=== PATIENT | female | born 1960 | race Caucasian/White ===

== ENCOUNTER 2023-05-23 23:46 | Observation (INO) | payer BC ==
--- OUTSIDE RECORDS SUMMARY | 2023-05-23 23:51 | XMS REPORT | Continuity of Care Document ---
:1960 Author Organization [facility] t Address [address] [place] [address] [address] [place] [address] Care Team Providers Name Role Phone Seth Severino MD Primary Care Physician Gaby Villa Attending Clinician Unavailable [email or web address]_S Attending Clinician Unavailable FRANCIS COUCH Attending Clinician Unavailable LION ESCOBEDO Attending Clinician Unavailable DEBBI VENEGAS Attending Clinician Unavaila ble [email or web address]_Kadiyala_S Admitting Clinician Unavailable LION ESCOBEDO Admitting Clinician Unavailable DEBBI VENEGAS Admitting Clinician Unavaila salvador Payers Payer Name Policy Type Policy Number Effective Date Expiration Date S ource [place] [id number] 2018 00:[place]:00 [place] EPO [id number] 2018 00:00:00 CHOICE Problems Condition Condition Condition Status Onset Resolution Last Treating Co mments Source Name Details Category Date Date Treatment Clinician Date Right Right Disease Active Last [facility] quadrant quadrant 00:00: t & Plan: Med ical abdominal abdominal 00 Formattin C enter pain pain g of this note might be different from the original. Right upper quadrant abdominal pain, nonspecif ic, random correlati on after eating food. Noted to have tendernes s to superfici al palpation . Given the nature of the pain and examinati on findings she could have some muscular component to the right upper quadrant abdominal pain. Certainly the nature of pain described does not character ize for underlyin g fatty liver. She would warrant further investiga tion for right upper quadrant abdominal pain with her GI physician because of associati on with food. Thyroid Thyroid Disease Active [facility] disorder disorder 4-20 Assessirene mariano 00:00: t & Plan: Medical [address] [place] [address] g of this note might be different from the original. Complaine d of nonspecif ic fatigue, constipat ion and palpitati on. Will check TSH to assess for thyroid abnormali ties. Fatty Fatty Disease Active 2016-08 [facility] liver liver 08-14 Assessirene Carranza 00:00: t & Plan: Medical [address] [place] [address] g of this note might be different from the original. Noted to have hepatic steatosis on MRI from 2016. FibroScan in 2017 consisten t with steatosis but no evidence of fibrosis. Comprehen sive work-up for other etiologie s in 2017 was negative. She has multiple risk factors including obesity, type 2 diabetes, hypertens ion and hyperlipi demia. Most recent ultrasoun d from 10/2021 showed mild fatty infiltrat ion of the liver. Control of the risk factors will be essential to improve the fatty liver. Counseled patient to adopt healthy lifestyle changes including low carbohydr ate diet, regular exercise and weight loss. Provided patient with education on fatty liver disease and fatty liver diseases diet. Metabolic Metabolic Disease Active 2016-08 [facility] syndrome syndrome 08-14 Assessirene mariano 00:00: t & Plan: Medical [address] [place] [address] g of this note might be different from the original. Risk factors for metabolic syndrome that include type 2 diabetes, hyperlipi demia, hypertens ion and obesity. Encourage d patient to lose weight. Also educated her to adhere to medical therapy for type 2 diabetes, hypertens ion and hyperlipi demia for strict control. Other Other Disease Active 2016-08 [facility] hyperlipid hyperlipid - Assessirene Carranza emia emia 00:00: t & Plan: Medical [address] [place] [address] g of this note might be different from the original. Treatment with atorvasta tin has been recommend ed by her treating physician s. Today we discussed the small risk of liver enzyme elevation s but a larger benefit from the treatment of her hyperlipi demia. It is recommend ed she begin the treatment trial with atorvasta tin with close monitorin g of the liver enzymes over the next 3 months with monthly labs locally. Exercise must begin regularly . Encounter Encounter Disease Active 2016-[address] [facility] for for 08-14 Assessirene Carranza screening screening 00:00: t & Plan: M edical for other for other 00 Formattin C enter viral viral g of this diseases diseases note might be different from the original. CDC recommend s that all patients with chronic liver disease, regardles s of etiology, should be immunized to prevent hepatitis A and hepatitis B if they are not already immune. This should be done in addition to other age-appro priate vaccines. She is immune to hepatitis A. We will check immunity against hepatitis B- vaccine recommend ations will follow. Abnormal Abnormal Disease Active 2016-08 [facility] liver 08-14 Deyanira Carranza diagnostic diagnostic 00:00: t & Plan: Medical imaging imaging 00 [facility] g of this note might be different from the original. Due to an abnormal appearanc e to the liver on high level MRI imaging, a comprehen sive work up for other etiologie s will be done today. The abnormal appearanc e is suspected due to hepatic steatosis only. No evidence of advanced fibrosis seen on imaging.A ddendum: the comprehen sive work up for other etiologie s was completel y negative. Allergies, Adverse Reactions, Alerts Allergy Allergy Status Severity Reaction(s) Onset Inactive Treating Comm ents Source Name Type Date Date Clinician CLINDAMY Allergy Active Low Rash 2020-[address] [facility] [address] [facility]DRA 2-26 [facility] Center Clindamy Propensi Active Rash 2019-[address] alondra ty to 2-26 [facility] adverse 00:00: Medical reaction 00 Center s LATEX Allergy Active High Hives [facility] 7[facility]30 [facility] 00:[facility] Medical 00 Center PENICILL Allergy Active High Hives [facility] INS 7-30 [facility] 00:00: Medical 00 Center HYDROCOD Allergy Active High Hives [facility] ONE-ACET 7-30 [facility] AMINOPHE 00:00: Medical N 00 Center Latex Drug Active Hives [facility] Allergy 7-30 [facility] 00:00: Medical 00 Center Penicill Drug Active Hives, [facility] Allergy Swelling 7-30 [facility] 00:[facility]: Medical 00 Center Hydrocod Drug Active Hives, [facility] one-Acet Allergy Shortness Of 7-30 L ukes aminophe Breath 00:00: Medical n 00 Center CODEINE Allergy Active High Anaphylaxis [facility] PHOSPHAT 2-27 [facility] E 00:00: Medical 00 Center Codeine Propensi Active Anaphylaxis [facility] Phosphat ty to 2-27 [facility] e adverse 00:00: Medical reaction 00 Center s Family History Family Member Diagnosis Comments Start Date Stop Date Source Natural father COPD [facility] Natural father Heart disease [facility] Natural father High blood pressure C [facility] Natural father Hyperlipidemia [facility] Maternal grandmother Cancer [facility] Maternal grandmother Diabetes [facility] Natural mother Anxiety disorder [facility] Natural mother Depression [facility] Natural mother High blood pressure C [facility] Natural mother Hyperlipidemia [facility] Paternal grandfather Heart disease C [facility] Social History Social Habit Start Date Stop Date Quantity Comments Source History SDOH [facility] Alcohol Std Drinks [facility] History SDOH [facility] Alcohol Binge Medical [facility] [facility] Alcohol intake 2021-11-28 2021-11-28 [facility]00 [facility] alcohol [facility] ([facility]) Alcohol Comment 2019-10-06 2019-10-[address] [facility] 00:00:00 00:00:00 Medical Center Cigarettes smoked 2019-10-06 2019-10-[address] [facility] current (pack per 00:00:00 00:00:00 Medical Center day) - Reported Cigarette 2019-10-06 2019-10-[address] [facility] pack-years 00:00:00 00:00:00 Medical Center Tobacco use and 2019-10-06 2019-10-06 Sm[address] [facility] exposure 00:00:00 00:00:00 non-user Medical Center History SDOH 2019-10-06 2019-10-[address] [facility] Alcohol Frequency 00:00:00 00:00:00 Medical Center Tobacco Comment 2019-10-06 2019-10-06 quit in the [address] [facility] 00:00:00 00:00:00 Medical Center History of tobacco 2008-03-[address] [facility] use 00[facility]00[facility]00 [facility] Sex Assigned At [address] 00:00:00 00:00:00 [facility] Smoking Status Start Date Stop Date Source Ex-smoker 2019-10-06 00:00:00 2019-10-06 00:00:[address] [facility] Medications Ordered Filled Start Stop Current Ordering Indication Dosage Frequency Signature Comments Components Source Medication Medication Date Date Medication? Clinician (SIG) Name Name docusate Yes 100mg Take [address] [facility] sodium 4-20 mg by [facility] (COLACE) 09:54: mouth 2 Medica l 100 MG 17 (two) Center capsule times daily as needed . cholecalcif Yes [id number] Q7D Take [facility] izabel, 4-20 50,000 [facility] vitamin D3, 09:54: Units by Or dical 50,000 unit 17 mouth once Ce nter Tab a week. lisinopril Yes 10mg QD Take [address] (PRINIVIL,Z 4-20 by mouth Luke s ESTRIL) 10 09:54: every Medica l MG tablet 17 morning. Center magnesium Yes 400mg QD Take [address] oxide 4-20 mg by [facility] (MAG-OX) 09:54: mouth Medical 400 mg 17 daily. Neotsu (241.3 mg magnesium) tablet ZINC Yes Take by [facility] ACETATE 4-20 mouth. [facility] ORAL 09:54: Medical 17 Center calcium Yes Take by [facility] carbonate 4-20 mouth. [facility] (CALTRATE 09:54: Medical 600 ORAL) 17 Center rosuvastati Yes 5mg QD Take [address] n (CRESTOR) 4-20 by mouth Luke s 5 MG tablet 09:50: daily. Medi traci 34 Center ergocalcife Yes TAKE [address] [facility] rol 4-05 CAPSULE [facility] (ERGOCALCIF 00:00: EVERY WEEK Medical IZABEL) 1,250 00 BY ORAL Cente r mcg (50,000 ROUTE FOR unit) 90 DAYS. capsule Vital Signs Vital Name Observation Time Observation Value Comments Source HEIGHT 2021-11-28 09:49:00 160 cm WEIGHT 2021-11-28 09:49:00 80.559 kg HEIGHT 2021-11-28 09:49:00 160 cm WEIGHT 2021-11-28 09:49:00 80.559 kg Procedures This patient has no known procedures. Plan of Care Planned Activity Planned Date Details Comments Source Future Scheduled 2029-10-07 Screening for malignant [facility] Test 00:00:00 neoplasm of colon Medical Ce nter (procedure) [code = 602964456] Future Scheduled 2029-10-07 Screening for malignant [facility] Test 00:00:00 neoplasm of colon Medical Ce nter (procedure) [code = 243407837] Future Scheduled 2023-04-11 Influenza Vaccine (#1) [facility] Test 00:00:00 [code = Influenza Vaccine Or dical Center (#1)] Future Scheduled 2022-11-[address] [facility] Test 00:00:00 Counseling and Screening [facility] (12+) [code = Tobacco Cessation Counseling and Screening (12+)] Future Scheduled 2022-08-[address] [facility] Test 00:00:00 (12+) [code = DEPRESSION Med [facility] Center SCREENING (12+)] Future Scheduled 2011-10-12 SHINGLES VACCINES ([address] [facility] Test 00:00:00 2) [code = SHINGLES Medical Center VACCINES (1 of 2)] Future Scheduled 2006 Lipid panel (procedure) [facility] Test 00:00:00 [code = 42637199] Medical Ce nter Future Scheduled 1982 Screening for malignant [facility] Test 00:00:00 neoplasm of cervix Medical C enter (procedure) [code = 978652295] Future Scheduled 1980 DTAP/TDAP/TD VACCINES ([address] [facility] Test 00:00:00 - Tdap) [code = Medical Cent er DTAP/TDAP/TD VACCINES (1 - Tdap)] Future Scheduled [address] [facility] Test 00:00:00 virus screening Medical Cent er (procedure) [code = 541697692] Future Scheduled 1962-04[birth year]13 COVID-19 VACCINE (#1) [facility] Test 00[facility]00:00 [code = COVID-19 VACCINE Med ical Center (#1)] Future Scheduled 1961 Screening for malignant [facility] Test 00:00:00 neoplasm of breast Medical C enter (procedure) [code = 951214302] Future Scheduled 1960 CT Colonography (combo) [facility] Test 00:00:00 [code = CT Colonography [facility] (combo)] Future Scheduled 1961 Screening for malignant [facility] Test 00:00:00 neoplasm of colon Medical Ce nter (procedure) [code = 522149577] Future Scheduled 1961 Screening for malignant [facility] Test 00:00:00 neoplasm of colon Medical Ce nter (procedure) [code = 282620844] Future Scheduled 1960 Sigmoidoscopy [code = [facility] Test 00:00:00 Sigmoidoscopy] Medical Cente r Encounters Start End Encounter Admission Attending Care Care Encounter Source Date/Time Date/Time Type Type Clinicians Facility Department ID 2023-04-17 Outpatient [place], [facility] [id number] Common 08:51:02 [place] [id number] [facility] 2023-03-24 Outpatient Villa, [facility] [id number] Common 13:49:02 [place] [id number] [facility] 2023-05-12 2023-05-12 Outpatient GC_GCBZW_Ka PRIV PRIV [id number] [facility] 00:00:00 00:00:00 diyala_S [id number] Medic al 2021-11-28 2021-11-28 Outpatient EL KHOA, [facility] [id number] [facility] 09:40:22 09:40:22 RISE 2019-10-06 2019-10-06 Outpatient [facility] [id number] [facility] 13:01:26 23:59:00 [id number] Results Test Description Test Time Test Comments Results Result Comments Source HEPATITIS B SURFACE ANTIBODY 2021-11-28 14:17:37 Test Item Value Reference Range Interpretation Comme nts HEPATITIS B SURFACE ANTIBODY (BEAKER) (test code = 647) < mIU/mL <8.0 Chamber Magistrate ID - [id number] 14:00:54 Test Item Value Reference Range Interpretation Comments THYROID STIMULATING HORMONE 0.755 uIU/mL 0.350-4.940 (BEAKER) (test code = 772) Chamber Magistrate ID - BSHEPATIC FUNCTION [id number] 13:36:26 Test Item Value Reference Range Interpretation Comments TOTAL PROTEIN (BEAKER) (test code = 7.6 gm/dL 6.0-8.3 770) ALBUMIN (BEAKER) (test code = 1145) 4.6 g/dL 3.5-5.0 BILIRUBIN TOTAL (BEAKER) (test code 0.7 mg/dL 0.2-1.2 = 377) BILIRUBIN DIRECT (BEAKER) (test 0.2 mg/dL 0.1-0.5 code = 706) ALKALINE PHOSPHATASE (BEAKER) (test 97 U/L 40-150 code = 346) AST (SGOT) (BEAKER) (test code = 19 U/L 5-34 353) ALT (SGPT) (BEAKER) (test code = 21 U/L 6-55 347) Chamber Magistrate ID - BSTISSUE [id number] 11:42:00Surgical Pathology Report Case: [id number] Authorizing Provider: Lion Escobedo, Collected: 10/07/2019 1030 MD Ordering Location: [facility] Received: 10/07/2019 1543 SERVICES Pathologist: Clara Winkler MD Specimens: A) - Biopsy, Gastric, Random Gastric Bx B) - Distal Esophagus, Distal Esophagus Bx C) - Proximal Esophagus, Proximal Esophagus Bx A. GASTRIC, RANDOM BIOPSY: - GASTRIC BODY TYPE MUCOSA WITH NO SIGNIFICANT HISTOPATHOLOGICAL CHANGE - GASTRIC ANTRUM TYPE MUCOSA WITH MONA CTIVE GASTROPATHY - WARTHIN STARRY STAIN NEGATIVE FOR H. PYLORI-LIKE ORGANISMS B. DISTAL ESOPHAGUS, BIOPSY: - FRAGMENTS OF ESOPHAGEAL SQUAMOUS MUCOSA WITH NO SIGNIFICANT HISTOPATHOLOGICAL CHANGEC. PROXIMAL ESOPHAGUS, BIOPSY: - ESOPHAGEAL SQUAMOUS MUCOSA WITH MILD BASAL CELL HYPERPLASIA AND REACTIVE CHANGES Signing Pathologist Direct Phone Line: [phone] signed by Clara Winkler MD on 10/08/2019 at 11:42 AMParts B and C. No significant increase in intraepithelial eosinophils are noted.Endoscopic report reviewed./[id number] and postoperative diagnosis: Change inbowel habits, black stool, bloating. Procedure-colonoscopy and upper endoscopy biopsy This case has three parts. A. Biopsy gastric, description random gastric biopsy. B. Distal esophagus, description distal esophagus biopsy. C. Proximal esophagus, description proximal esophagus biopsy. A. Specimen is received in formalin labeled with the patient's name, accession number and "biopsy, gastric" and consists of three cobian-pink mucosa-covered pieces of tissue from 0.3 x 0.1 x 0.1, 0.2 x 0.2 x 0.2 cm and 0.1 x 0.1 0.1 cm in aggregate. Specimen submitted entirely following infiltration in cassette A1.B. Specimen is received in formalin labeled with the patient's name, accession number and "distal esophagus " and consists of multiple cobian-pink mucosa-covered pieces of tissue from 0.3 x 0.1 x 0.1 to 0.1 x 0.1 x 0.1 cm in aggregate. Specimen is submitted entirely following infiltration in cassette B1. C. Specimen is received in formalin labeled with the patient's name, accession number and "proximal esophagus" and consists of multiple cobian-pink mucosa-covered pieces of tissue from 0.3 x 0.1 x 0.1 to 0.1 x 0.1 x 0.1 cm in aggregate. Specimen is submitted entirely following infiltration in cassette C1. HS/bcPerformed The interpretation of this case included the use of immunohistochemistry or special stains.Control Slides Examined: In-house known positive controls were evaluated along with the test tissue.These control slides run alongside of the patients sample show appropriate staining. Internal positive and negative controls when available are evaluated Immunohistochemistry technical testing was performed at [facility], Pathology Laboratory where it was developed and its performance characteristics were determined. It has not been cleared or approved by the U.S. Food and Drug Administration. The FDA has determined that such clearance or approval is not necessary. The test is used for clinical purposes. It should not be regarded as investigational or for research. This laboratory is certified under the Clinical Laboratory Improvement Amendments of 1988 (CLIA-88) as qualifiedto perform high complexity clinical laboratory testing.POCT-GLUCOSE [id number] 09:37:00 Test Item Value Reference Range Interpretation Comments POC-GLUCOSE METER 89 mg/dL 70-110 : TESTED A T [employer] ([employer]) (test code = [facility] 1538[facility] 7703 0: Chamber Magistrate/Techni cindy ID = [id number] for NATHANIEL BURDEN ANTI-NUCLEAR ANTIBODY (RAFIQ)2017-06-05 06:08:00 Test Item Value Reference Range Interpretation Comments ANTI-NUCLEAR ANTIBODY (RAFIQ) (BEAKER) Negative Negative (test code = 418) HEPATITIS C [id number] 19:14:00 Test Item Value Reference Range Interpretation Comments HEPATITIS C ANTIBODY (BEAKER) Nonreactive Nonreactive (test code = 367) [id number] 16:56:00 Test Item Value Reference Range Interpretation Comments FERRITIN (BEAKER) (test code = 361) 64 ng/mL 5-275 IRON, TIBC, % SAT. (WITHOUT FERRITIN)2017-06-04 16:36:00 Test Item Value Reference Range Interpretation Comments IRON (BEAKER) (test code = 547) 88 ug/dL 40-160 TOTAL IRON BINDING CAPACITY 369 ug/dL 250-450 (BEAKER) (test code = 769) IRON % SATURATION (2) (BEAKER) 24 % 20-55 (test code = 2590) CBC W/PLT COUNT & AUTO [id number] 14:56:00 Test Item Value Reference Range Interpretation Comments WHITE BLOOD CELL COUNT (BEAKER) 5.1 K/ L 3.5-10.5 (test code = 775) RED BLOOD CELL COUNT (BEAKER) 4.58 M/ L 3.93-5.22 (test code = 761) HEMOGLOBIN (BEAKER) (test code = 13.7 GM/DL 11.2-15.7 410) HEMATOCRIT (BEAKER) (test code = 42.8 % 34.1-44.9 411) MEAN CORPUSCULAR VOLUME (BEAKER) 93.4 fL 79.4-94.8 (test code = 753) MEAN CORPUSCULAR HEMOGLOBIN 29.9 pg 25.6-32.2 (BEAKER) (test code = 751) MEAN CORPUSCULAR HEMOGLOBIN CONC 32.0 GM/DL 32.2-35.5 L (BEAKER) (test code = 752) RED CELL DISTRIBUTION WIDTH 12.8 % 11.7-14.4 (BEAKER) (test code = 412) PLATELET COUNT (BEAKER) (test 217 K/CU MM 150-450 code = 756) MEAN PLATELET VOLUME (BEAKER) 11.0 fL 9.4-12.3 (test code = 754) NUCLEATED RED BLOOD CELLS 0 /100 WBC 0-0 (BEAKER) (test code = 413) NEUTROPHILS RELATIVE PERCENT 50 % (BEAKER) (test code = 429) LYMPHOCYTES RELATIVE PERCENT 44 % (BEAKER) (test code = 430) MONOCYTES RELATIVE PERCENT 5 % (BEAKER) (test code = 431) EOSINOPHILS RELATIVE PERCENT 1 % (BEAKER) (test code = 432) BASOPHILS RELATIVE PERCENT 0 % (BEAKER) (test code = 437) NEUTROPHILS ABSOLUTE COUNT 2.55 K/ L 1.56-6.13 (BEAKER) (test code = 670) LYMPHOCYTES ABSOLUTE COUNT 2.27 K/ L 1.18-3.74 (BEAKER) (test code = 414) MONOCYTES ABSOLUTE COUNT (BEAKER) 0.26 K/ L 0.24-0.36 (test code = 415) EOSINOPHILS ABSOLUTE COUNT 0.03 K/ L 0.04-0.36 L (BEAKER) (test code = 416) BASOPHILS ABSOLUTE COUNT (BEAKER) 0.02 K/ L 0.01-0.08 (test code = 417) IMMATURE GRANULOCYTES-RELATIVE 0 % 0-1 PERCENT (BEAKER) (test code = 2801) (MANUAL DIFFERENTIAL)2017-06-04 14:56:00 Test Item Value Reference Range Interpretation Comments TOTAL COUNTED (BEAKER) (test code = 1351) PLT MORPHOLOGY (BEAKER) (test code = Normal 486) RBC MORPHOLOGY (BEAKER) (test code = Normal 762) ATYPICAL LYMPHS(BEAKER) (test code = Present 1678) COMPREHENSIVE METABOLIC [id number] 14:26:00 Test Item Value Reference Range Interpretation Comments TOTAL PROTEIN 7.8 gm/dL 6.0-8.3 (BEAKER) (test code = 770) ALBUMIN (BEAKER) 4.5 g/dL 3.5-5.0 (test code = 1145) ALKALINE PHOSPHATASE 110 U/L 40-150 (BEAKER) (test code = 346) BILIRUBIN TOTAL 1.1 mg/dL 0.2-1.2 (BEAKER) (test code = 377) SODIUM (BEAKER) (test 138 meq/L 136-145 code = 381) POTASSIUM (BEAKER) 3.6 meq/L 3.5-5.1 (test code = 379) CHLORIDE (BEAKER) 106 meq/L 98-107 (test code = 382) CO2 (BEAKER) (test 23 meq/L 22-29 code = 355) BLOOD UREA NITROGEN 10 mg/dL 7-21 (BEAKER) (test code = 354) CREATININE (BEAKER) 0.69 mg/dL 0.57-1.25 (test code = 358) GLUCOSE RANDOM 87 mg/dL 70-105 (BEAKER) (test code = 652) CALCIUM (BEAKER) 9.5 mg/dL 8.4-10.2 (test code = 697) AST (SGOT) (BEAKER) 17 U/L 5-34 (test code = 353) ALT (SGPT) (BEAKER) 16 U/L 6-55 (test code = 347) EGFR (BEAKER) (test 88 mL/min/1.73 ESTIMA TATO GFR IS code = 1092) sq m NOT ACCURATE CREATININE CLEARANCE IN PREDICTING GLOMERULAR FILTRATION RATE . ESTIMATED GFR I S NOT APPLICABLE FOR DIALYSIS PATIEN TS. BILIRUBIN, [id number] 14:26:00 Test Item Value Reference Range Interpretation Comments BILIRUBIN DIRECT (BEAKER) (test 0.3 mg/dL 0.1-0.5 code = 706) TISSUE [id number] 19:02:00Surgical Pathology Report Case: [id number] Authorizing Provider: Debbi Venegas Ordering Provider: Debbi Venegas MD Fernando, MD Ordering Location: [facility] Endoscopy Collected: 11/15/2016 0844 Services Pathologist: Romain Tao MD Received: 11/15/2016 1126 Specimens: A) - Small Bowel, NOS, BX B) - Gastric, RANDOM GASTRIC BX C) - Polyp, Gastric, POLYP TAKEN W/ REGULAR FORCEP D) - Ileum, Terminal, BX E) - Large Intestine, Colon - Right/Ascending, BX R/O MICROSCOPIC COLITIS F) - Large Intestine, Colon - Left/Descending, BX R/O MICROSCOPIC COLITIS A. DUODENUM, ENDOSCOPIC MUCOSAL BIOPSIES:- DUODENAL MUCOSA WITH PRESERVED VILLOUS ARCHITECTURE AND NO SIGNIFICANT DIAGNOSTIC ALTERATIONSB. STOMACH, ENDOSCOPIC MUCOSAL BIOPSIES- JUNCTIONAL AND OXYNTIC MUCOSA WITH NO SIGNIFICANT DIAGNOSTIC ALTERATIONS- NEGATIVE FOR HELICOBACTER PYLORI- NEGATIVE FOR INTESTINAL METAPLASIA, DYSPLASIA OR CARCINOMAC. STOMACH, ENDOSCOPIC MUCOSAL BIOPSIES- POLYPOID OXYNTIC MUCOSA WITH MILD CHRONIC INACTIVE GASTRITIS - NEGATIVE FOR HELICOBACTER PYLORI- NEGATIVE FOR INTESTINAL METAPLASIA, DYSPLASIA OR CARCINOMAD. TERMINAL ILEUM, ENDOSCOPIC MUCOSAL BIOPSIES- ILEAL MUCOSA WITH NO SIGNIFICANT DIAGNOSTIC A LTERATIONSE. COLON, RIGHT/ASCENDING, ENDOSCOPIC MUCOSAL BIOPSIES- COLONIC MUCOSA WITH NO SIGNIFICANTDIAGNOSTIC ALTERATIONSF. COLON, LEFT/DESCENDING, ENDOSCOPIC MUCOSAL BIOPSIES- COLONIC MUCOSA WITH NOSIGNIFICANT DIAGNOSTIC ALTERATIONS Signing Pathologist Direct Phone Line: [phone], [id number] abdominal pain, diarrhea, weight loss, gastrointestinal hemorrhage, rule out microscopic colitisA. Small bowel biopsy; B. Random gastric biopsy; C. Gastric polyp; D. Terminal ileum biopsy; E. Right/ascending colon biopsy; F. Left/descending colon biopsySpecimen A: Received in formalin labeled"small bowel" is a single fragment measuring 0.4 cm in greatest dimension. Entirely submitted A1. Specimen B: Received in formalin labeled "gastric" are two fragments each measuring 0.3 cm in greatest dimension. Entirely submitted B1. Specimen C: Received in formalin labeled "polyp, gastric" is a single fragment measuring 0.2 cm in greatest dimension. Entirely submitted C1. Specimen D: Received in formalin labeled "ileum, terminal" is a single fragment measuring 0.3 cm in greatest dimension. Entirely submitted D1. Specimen E: Received in formalin labeled "large intestine, colon right/ascending" aretwo fragments measuring 0.2 and 0.3 cm in greatest dimension. Entirely submitted E1. Specimen F: Received in formalin labeled "large intestine, colon left/descending" are three fragments measuring 0.6 x 0.5 x 0.1 cm In aggregate. Entirely submitted F1. DB/Sarah. Section shows pieces of duodenal mucosa with unremarkable morphology and preserved villous architecture. Plasma cells are present. There is noactive inflammation, gastric metaplasia, intraepithelial lymphocytosis or malignancy. No parasites are seen.B, C. Microscopic examination is performed and the findings are incorporated in the diagnostic line. Warthin starry stain is negative for Helicobacter pylori. D. Section shows pieces of ileal mucosa with unremarkable morphology and preserved villous architecture. There is no significant inflammation, pyloric metaplasia, intraepithelial lymphocytosis or malignancy. No granulomas are seen. E, F.Section shows pieces of unremarkable colonic mucosa with preserved crypt architecture. Specifically,no active inflammation, intraepithelial lymphocytosis or thickened subepithelial collagen band is seen. No viral inclusions are seen. No dysplasia or carcinoma is present.POCT-GLUCOSE [id number] 07:11:00 Test Item Value Reference Range Interpretation Comments POC-GLUCOSE METER 104 mg/dL 70-110 TESTED AT [facility] 67 (EDU) (test code = ТАТЬЯНА MAJOR ND 1538) [id number]
[2023-05-24 00:14] LABS: Absolute Lymphocytes (CBC) 3.3 K/uL (0.7-4.9); Hematocrit 42.4 % (36.0-45.0); Lymphocytes % 52.6 % (15.3-44.8); MCV 91.8 fL (80-100); MPV 8.5 fL (7.6-11.3); Platelets 222 thou/uL (152-406); RBC Red Blood Cell Count 4.62 M/uL (3.86-4.86)
[2023-05-24 00:19] LABS: Protime INR 0.91
[2023-05-24 00:36] LABS: ALT/SGPT 36 U/L (13-56); AST/SGOT 18 U/L (15-37); Albumin 3.9 g/dL (3.4-5.0); Alkaline Phosphatase 136 U/L (45-117); BUN Blood Urea Nitrogen 8 mg/dL (7-18); Bicarbonate 20 mEq/L (21-32); Bilirubin Total 0.3 mg/dL (0.2-1.0); Glomerular Filtration Rate 85 ml/min (=/>90); Glucose Level 138 mg/dL (74-106); Magnesium 2.2 mg/dL (1.6-2.4); NT PRO-BNP 16 pg/mL (<125); Potassium 3.8 mEq/L (3.5-5.1); Protein, Total 7.9 g/dL (6.4-8.2); Sodium Level 142 mEq/L (136-145); Troponin High Sensitivity 5.8 pg/mL (<58.9)
[2023-05-24 00:38] LABS: Bilirubin Direct < 0.1 mg/dL (0-0.2); Bilirubin Indirect, Calculated ND mg/dL (0.2-0.8)
[2023-05-24] MEDS ORDERED: ONDANSETRON 4 MG/2 ML VIAL ONE (00:43)
[2023-05-24] MEDS ORDERED: NA CHLORIDE 0.9% 1,000 ML ONE ×2 (00:43→03:01)
[2023-05-24 03:21] LABS: Thyroid Stimulating Hormone 0.481 uIU/mL (0.358-3.740); Troponin High Sensitivity 6.2 pg/mL (<58.9)
--- NOTE | 2023-05-24 03:41 | ER ---
Nurse's Notes [facility] Name: Diane Morrell Age: 62 yrs Sex: Female : 1960 Arrival Date: 05/23/2023 Time: 23:46 Bed 15 Private MD: Diagnosis: Atypical chest pain, nausea vomiting, Presentation: 05/24 00:01 Chief complaint: Patient states: started with a headache and then palpitations , now iw has chest pain , vomiting on arrival to ER. Coronavirus screen: At this time, the client does not indicate any symptoms associated with coronavirus-19. Ebola Screen: Patient negative for fever greater than or equal to 101.5 degrees Fahrenheit, and additional compatible Ebola Virus Disease symptoms Patient denies exposure to infectious person. Patient denies travel to an Ebola-affected area in the 21 days before illness onset. No symptoms or risks identified at this time. Initial Sepsis Screen: Does the patient meet any 2 criteria? No. Patient's initial sepsis screen is negative. Does the patient have a suspected source of infection? No. Patient's initial sepsis screen is negative. Risk Assessment: Do you want to hurt yourself or someone else? Patient reports no desire to harm self or others. 00:01 Method Of Arrival: Ambulatory iw 00:01 Acuity: DINORAH 3 iw 10:08 Onset of symptoms. db Historical: - Allergies: 00:12 PENICILLINS; iw 00:12 Vicodin; iw 00:12 Clindamycin; iw 00:12 Latex, Natural Rubber; iw - PMHx: 00:14 Hypertensive disorder; Hypercholesterolemia; iw - Immunization history:: Client reports having NOT received the Covid vaccine. - Social history:: Smoking status: Patient reports the use of cigarette tobacco products, denies chronic smoking, but will smoke occasionally. - Family history:: not pertinent. Screenin:36 [facility] ED Fall Risk Assessment (Adult) Score/Fall Risk Level 0 - 2 = Low Risk. Abuse iw screen: Denies threats or abuse. Denies injuries from another. Nutritional screening: No deficits noted. Tuberculosis screening: No symptoms or risk factors identified. Assessment: 00:36 General: Appears in no apparent distress. Behavior is cooperative. Pain: Complains of iw pain in anterior aspect of left upper chest and mid-sternal area Pain does not radiate. Quality of pain is described as tightness Pain began 1 hour ago. Neuro: Level of Consciousness is awake, alert, obeys commands. Cardiovascular: Patient's skin is warm and dry. Respiratory: Respiratory effort is even, unlabored, Respiratory pattern is regular, symmetrical. GI: Reports nausea, vomiting. 02:00 Reassessment: No changes from previously documented assessment. Patient and/or family kb3 updated on plan of care and expected duration. Pain level reassessed. 04:00 Reassessment: Patient appears in no apparent distress at this time. No changes from kb3 previously documented assessment. 05:00 General: Pt resting comfortably. Transferred to a bed, warm blankets provided. Updated kb3 regarding awaiting bed for admission. No questions at this time.. 07:00 Reassessment: Patient appears in no apparent distress at this time. Patient and/or db family updated on plan of care and expected duration. Pain level reassessed. Patient is alert, oriented x 3, equal unlabored respirations, skin warm/dry/pink. Vital Signs: 00:12 BP 152 / 112; Pulse 97; Resp 18; Temp 98.2; Pulse Ox 98% on R/A; Weight 77.11 kg; iw Height 5 ft. 3 in. ; Pain 4/10; 00:36 BP 157 / 98; Pulse 100; Resp 18; Pulse Ox 98% on R/A; iw 01:24 BP 127 / 83; Pulse 87; Resp 18; Pulse Ox 97% ; kb3 02:00 BP 111 / 72; Pulse 87; Resp 20; Pulse Ox 97% ; kb3 03:00 BP 155 / 90; Pulse 72; Resp 20; Pulse Ox 100% ; kb3 04:00 BP 133 / 88; Pulse 85; Resp 20; Pulse Ox 99% ; kb3 05:13 BP 121 / 86; Pulse 56; Resp 18; Pulse Ox 98% ; kb3 06:00 BP 131 / 66; Pulse 61; Resp 18; Pulse Ox 99% ; kb3 07:00 BP 106 / 57; Pulse 65; Resp 16; Pulse Ox 100% on R/A; db 00:12 Body Mass Index 30.11 (77.11 kg, 160.02 cm) iw 00:12 Pain Scale: Adult iw ED Course: 05/23 23:47 Patient arrived in ED. jj6 23:54 Gustavo Rangel MD is Attending Physician. sp4 05/24 00:[address], RN is Primary Nurse. iw 00:01 Triage completed. iw 00:15 COVID-19 SARS RT PCR Sent. iw 00:15 Influenza Screen (a \T\ B) Sent. iw 00:20 Inserted saline lock: 22 gauge in right wrist, using aseptic technique. Blood collected.ha1 00:36 Patient has correct armband on for positive identification. Provided Education on: lab iw draw. Client placed on continuous cardiac and pulse oximetry monitoring. NIBP monitoring applied. 00:46 XRAY Chest (1 view) In Process Unspecified. EDMS 01:15 CT Chest Wo Con In Process Unspecified. EDMS 03:40 Pal Mathews is Hospitalizing Provider. sp4 05:18 Head Brain Wo Cont CT In Process Unspecified. EDMS 08:28 No provider procedures requiring assistance completed. Patient admitted, IV remains in db place. Patient maintains SpO2 saturation greater than 95% on room air. 10:09 Arm band placed on Patient placed in an exam room. db Administered Medications: 00:35 Drug: NS 0.9% IV 1000 ml IV at 1 bolus Per protocol; 1000 mL bolus Route: IV; Rate: 1 iw bolus; Site: right wrist; 02:16 Follow up: Response: No adverse reaction; IV Status: Completed infusion; IV Intake: kb3 1000ml 00:35 Drug: Ondansetron IVP 8 mg IVP once; over 2 minutes Route: IVP; Site: right wrist; iw 01:00 Follow up: Response: No adverse reaction; Pain is decreased; Nausea is decreased [facility] 02:52 Drug: NS 0.9% IV 1000 ml IV at 125 ml/hr continuous Route: IV; Rate: 125 ml/hr; Site: kb3 left hand; 10:08 Follow up: Response: No adverse reaction; IV Status: Completed infusion; IV Intake: db 1000ml 03:49 Drug: metoCLOPramide IVP 10 mg IVP once; over 1 to 2 minutes Route: IVP; Site: right 3 hand; 10:08 Follow up: Response: No adverse reaction db 03:49 Drug: diphenhydrAMINE IVP 25 mg IVP once Route: IVP; Site: right hand; 3 10:08 Follow up: Response: No adverse reaction db 03:50 Drug: Ketorolac IVP 30 mg IVP once Route: IVP; Site: right hand; kb3 10:08 Follow up: Response: No adverse reaction db 05:00 Drug: Famotidine IVP 20 mg IVP once; dilute with 10 mL 0.9% NaCl; give over 2 minutes kb3 Route: IVP; Site: right hand; 10:08 Follow up: Response: No adverse reaction db 07:35 Drug: Aspirin PO Chewable Tablet 324 mg PO once; 81 mg tablets x 4 Route: PO; db 10:08 Follow up: Response: No adverse reaction db Medication: 10:09 VIS not applicable for this client. db Intake: 02:16 IV: 1000ml; Total: 1000ml. kb3 10:08 IV: 1000ml; Total: 2000ml. db Outcome: 03:40 Decision to Hospitalize by Provider. sp4 08:28 Admitted to ER Hold. Please see [facility] for further documentation. db 08:28 Condition: stable 08:28 Instructed on the need for admit, 17:32 Patient left the ED. db Signatures: Dispatcher [employer] EDChelly Horta, RN Carmel Wilson jj6 Pat Barker RN RN ha1 Ayana Underwood RN RN kb3 Anusha Calix RN RN Gustavo Adams MD MD sp4
--- NOTE | 2023-05-24 03:41 | EDPHYS ---
Physician Documentation [facility] Name: Diane Morrell Age: 62 yrs Sex: Female : 1960 Arrival Date: 05/23/2023 Time: 23:46 Bed 15 Private MD: ED Physician Gustavo Rangel HPI: 05/23 23:56 This 62 yrs old Female presents to ER via Unassigned with complaints of Chest sp4 Pain, Breathing Difficulty. 05/24 02:24 Patient is 62-year-old female with history of hypertension hypercholesterolemia and sp4 also on blood pressure medicine lisinopril and atorvastatin. Patient presents after she developed acute left-sided chest wall pain also shortness of breath and moderate to severe anxiety. Patient reported she was resting at home after having 4 beers. Denies syncope or vomiting. . Historical: - Allergies: 00:12 PENICILLINS; iw 00:12 Vicodin; iw 00:12 Clindamycin; iw 00:12 Latex, Natural Rubber; iw - PMHx: 00:14 Hypertensive disorder; Hypercholesterolemia; iw - Immunization history:: Client reports having NOT received the Covid vaccine. - Social history:: Smoking status: Patient reports the use of cigarette tobacco products, denies chronic smoking, but will smoke occasionally. - Family history:: not pertinent. ROS: 02:24 Constitutional: Negative for fever, chills, and weight loss, Cardiovascular: Positive sp4 chest pain, left-sided chest pain, positive anxiety, negative dyspnea 02:24 All other systems are negative, Exam: 02:24 Constitutional: This is a well developed, well nourished patient who is awake, alert, sp4 anxious appearing female who is mildly intoxicated. Head/Face: Normocephalic, atraumatic. Eyes: Pupils equal round and reactive to light, extra-ocular motions intact. Lids and lashes normal. Conjunctiva and sclera are not injected. Cornea within normal limits. Periorbital areas with no swelling, redness, or edema. ENT: Nares patent. No nasal discharge, no septal abnormalities noted. Tympanic membranes are normal and external auditory canals are clear. Oropharynx with no redness, swelling, or masses, exudates, or evidence of obstruction, uvula midline. Mucous membranes moist. Neck: Trachea midline, no thyromegaly or masses palpated, and no cervical lymphadenopathy. Supple, full range of motion without nuchal rigidity, or vertebral point tenderness. Chest/axilla: Normal chest wall appearance and motion. Nontender with no deformity. No lesions are appreciated. Cardiovascular: Regular rate and rhythm with a normal S1 and S2. No gallops, murmurs, or rubs. Normal PMI, no JVD. No pulse deficits. Respiratory: Lungs have equal breath sounds bilaterally, clear to auscultation and percussion. No rales, rhonchi or wheezes noted. No increased work of breathing, no retractions or nasal flaring. Abdomen/GI: Soft, non-tender, with normal bowel sounds. No distension or tympany. No guarding or rebound. No evidence of tenderness throughout. Back: No spinal tenderness. No costovertebral tenderness. Skin: Warm, dry with normal turgor. Normal color with no rashes, no lesions, and no evidence of cellulitis. MS/ Extremity: Pulses equal, no cyanosis. Neurovascular intact. Full, normal range of motion. Neuro: Awake and alert, GCS 15, oriented to person, place, time, and situation. Cranial nerves II-XII grossly intact. Motor strength 5/5 in all extremities. Sensory grossly intact. Psych: Awake, alert, with orientation to person, place and time. Anxious appearing female mildly intoxicated. 02:24 ECG was reviewed by the Attending Physician. Areas EKG at 2359, sinus rhythm with a rate of 96, rightward axis, no ST elevation or depression, no ectopy Vital Signs: 00:12 BP 152 / 112; Pulse 97; Resp 18; Temp 98.2; Pulse Ox 98% on R/A; Weight 77.11 kg; iw Height 5 ft. 3 in. ; Pain 4/10; 00:36 BP 157 / 98; Pulse 100; Resp 18; Pulse Ox 98% on R/A; iw 01:24 BP 127 / 83; Pulse 87; Resp 18; Pulse Ox 97% ; kb3 02:00 BP 111 / 72; Pulse 87; Resp 20; Pulse Ox 97% ; kb3 03:00 BP 155 / 90; Pulse 72; Resp 20; Pulse Ox 100% ; kb3 04:00 BP 133 / 88; Pulse 85; Resp 20; Pulse Ox 99% ; kb3 05:13 BP 121 / 86; Pulse 56; Resp 18; Pulse Ox 98% ; kb3 06:00 BP 131 / 66; Pulse 61; Resp 18; Pulse Ox 99% ; kb3 07:00 BP 106 / 57; Pulse 65; Resp 16; Pulse Ox 100% on R/A; db 00:12 Body Mass Index 30.11 (77.11 kg, 160.02 cm) iw 00:12 Pain Scale: Adult iw MDM: 05/23 23:56 Patient medically screened. sp4 05/24 02:28 ED course: EXAM DESCRIPTION: Chest Single View 05/24/2023 12:54 AM CDT CLINICAL sp4 HISTORY: 62 years, Female, CHEST PAIN COMPARISON: None. FINDINGS: 1 x-ray views of the chest (portable) was obtained. No prior films are available for comparison. The cardiomediastinal silhouette demonstrate to be within normal limits. The heart demonstrate to be within normal limits. The thoracic aorta is mildly tortuous. The pulmonary vasculature is normal distribution. Costophrenic angles are sharp. No areas of consolidation or masses are seen. External EKG leads within the [id number] limits diagnosis. The rest of the soft tissue and bony structures demonstrate to be unremarkable. IMPRESSION: No acute cardiopulmonary disease seen. 03:00 ED course: CT Thorax - CLINICAL HISTORY: 62 years, Female, left chest pain anterior sp4 COMPARISON: None FINDINGS: Multiple transaxial tomograms of the chest were obtained from the lung apices through the adrenal glands, utilizing 5 mm slice thickness at 5 mm interval reconstruction without the administration of IV contrast. Multiplanar reformats in the sagittal and coronal plane were generated and reviewed. This exam was performed according to our departmental dose-optimization protocol, which includes automated exposure control, adjustment of the mA and/or kV according to patient size and/or use of iterative reconstruction technique. The lungs parenchyma demonstrate to be clear. No evidence for pneumothorax. No masses and/or nodules are identified. The trachea mainstem bronchus demonstrate to be normal. There is no significant pleural and/or pericardial effusions. The thoracic aorta demonstrate to be within normal limits. The heart is not enlarged. There are minimal coronary artery calcifications. Minimal aortic valvular calcifications. There is no significant mediastinal and/or hilar lymphadenopathy. The axillary regions demonstrate to be clear. The bone windows demonstrate mild bony osteopenia. 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 No significant skeletal lesions. Anterior spondylosis mid/lower thoracic spine. The visualized portions of the upper abdomen demonstrate status post cholecystectomy. IMPRESSION: Minimal coronary artery calcifications. Vertebral anomaly T5. Otherwise unremarkable CT scan of the chest without contrast. . 03:34 HEART Score: History: Moderately Suspicious (1), ECG: Normal (0), Age: > 45 and < 65 sp4 years (1), Risk Factors: > or = 3 Risk factors for atherosclerotic disease (2), Troponin: < or = 1 x Normal Limit (0), Total Score = 4. The patient was given aspirin in the Emergency Department. Data reviewed: vital signs, nurses notes, lab test result(s), EKG, radiologic studies, doppler, plain films. 03:40 Differential diagnosis: acute myocardial infarction, acute pericarditis, anxiety, sp4 coronary artery disease chest wall pain, congestive heart failure Cholelithiasis. 03:41 ED course: Patient remains symptomatic, has chest pain he also developed headache and sp4 vomiting. Repeat troponin is negative patient is hemodynamically stable we have requested admission for observation in the hospital. . 05/23 23:55 Order name: Basic Metabolic Panel; Complete Time: 00:45 4 05/23 23:55 Order name: CBC with Diff; Complete Time: 00:29 4 05/23 23:55 Order name: LFT's; Complete Time: 00:45 05/23 23:55 Order name: Magnesium; Complete Time: 00:45 05/23 23:55 Order name: NT PRO-BNP; Complete Time: 00:45 05/23 23:55 Order name: PT-INR; Complete Time: 00:29 05/23 23:55 Order name: Troponin HS; Complete Time: 00:45 4 05/23 23:56 Order name: COVID-19 SARS RT PCR; Complete Time: 02:23 4 05/23 23:56 Order name: Influenza Screen (a \T\ B); Complete Time: 00:45 05/24 00:30 Order name: Alcohol Level; Complete Time: 01:27 4 05/24 02:24 Order name: Troponin High Sensitivity; Complete Time: 03:33 4 05/24 02:24 Order name: TSH; Complete Time: 03:33 4 05/24 02:24 Order name: T4 Free; Complete Time: 03:33 sp4 05/24 04:31 Order name: Lipase; Complete Time: 05:16 la1 05/24 09:46 Order name: Basic Metabolic Panel; Complete Time: 00:50 EDMS 05/24 09:46 Order name: Troponin High Sensitivity; Complete Time: 00:50 EDMS 05/24 09:46 Order name: Lipid Profile; Complete Time: 00:50 EDMS 05/24 09:46 Order name: Magnesium; Complete Time: 00:50 EDMS 05/24 15:19 Order name: Troponin High Sensitivity; Complete Time: 00:50 EDMS 05/23 23:55 Order name: XRAY Chest (1 view); Complete Time: 00:50 sp4 05/24 00:44 Order name: CT Chest Wo Con; Complete Time: 00:50 sp4 05/24 04:20 Order name: Head Brain Wo Cont CT; Complete Time: 00:50 la1 05/23 23:55 Order name: EKG; Complete Time: 23:56 sp4 05/23 23:55 Order name: Cardiac monitoring; Complete Time: 00:14 sp4 05/23 23:55 Order name: EKG - Nurse/Tech; Complete Time: 00:14 sp4 05/23 23:55 Order name: IV Saline Lock; Complete Time: 00:14 sp4 05/23 23:55 Order name: Labs collected and sent; Complete Time: 00:14 sp4 05/23 23:55 Order name: O2 Per Protocol; Complete Time: 00:14 sp4 05/23 23:55 Order name: O2 Sat Monitoring; Complete Time: 00:14 sp4 EC:24 Rate is 96 beats/min. Rhythm is regular, Normal Sinus Rhythm. Right axis deviation sp4 noted. UT interval is normal. QRS interval is normal. QT interval is normal. No Q waves. T waves are Normal. No ST changes noted. Clinical impression: No evidence of ischemia. Interpreted by me. Administered Medications: 00:35 Drug: NS 0.9% IV 1000 ml IV at 1 bolus Per protocol; 1000 mL bolus Route: IV; Rate: 1 iw bolus; Site: right wrist; 02:16 Follow up: Response: No adverse reaction; IV Status: Completed infusion; IV Intake: kb3 1000ml 00:35 Drug: Ondansetron IVP 8 mg IVP once; over 2 minutes Route: IVP; Site: right wrist; iw 01:00 Follow up: Response: No adverse reaction; Pain is decreased; Nausea is decreased kb3 02:52 Drug: NS 0.9% IV 1000 ml IV at 125 ml/hr continuous Route: IV; Rate: 125 ml/hr; Site: kb3 left hand; 10:08 Follow up: Response: No adverse reaction; IV Status: Completed infusion; IV Intake: db 1000ml 03:49 Drug: metoCLOPramide IVP 10 mg IVP once; over 1 to 2 minutes Route: IVP; Site: right kb3 hand; 10:08 Follow up: Response: No adverse reaction db 03:49 Drug: diphenhydrAMINE IVP 25 mg IVP once Route: IVP; Site: right hand; kb3 10:08 Follow up: Response: No adverse reaction db 03:50 Drug: Ketorolac IVP 30 mg IVP once Route: IVP; Site: right hand; kb3 10:08 Follow up: Response: No adverse reaction db 05:00 Drug: Famotidine IVP 20 mg IVP once; dilute with 10 mL 0.9% NaCl; give over 2 minutes kb3 Route: IVP; Site: right hand; 10:08 Follow up: Response: No adverse reaction db 07:35 Drug: Aspirin PO Chewable Tablet 324 mg PO once; 81 mg tablets x 4 Route: PO; db 10:08 Follow up: Response: No adverse reaction db Disposition Summary: 05/24/23 03:40 Hospitalization Ordered Notes: Hospitalization Status: Observation sp4 Provider: Pal Mathews sp4 Condition: Fair sp4 Problem: new sp4 Symptoms: have improved sp4 Bed/Room Type: Standard sp4 Location: Telemetry/MedSurg (observation)(05/24/23 14:06) Room Assignment: 210(05/24/23 14:06) eb Diagnosis - Atypical chest pain, nausea vomiting, sp4 Forms: - Medication Reconciliation Form sp4 - SBAR form sp4 - Leadership Thank You Letter sp4 Signatures: Dispatcher [employer] Chelly Abbasi RN RN iw Deo Batres, MARISA MAKE UP OPERATOR-Cla1 Kaylyn Jay RN Cathryn Hardy eb Ayana Underwood RN RN kb3 Anusha Calix RN RN Gustavo Adams MD MD sp4 Corrections: (The following items were deleted from the chart) 00:54 00:08 Chest For PE Angio+CT.RAD.DAKOTAZ ordered. EDMS EDMS 04:57 03:40 Telemetry/MedSurg (observation) sp4 cg 04:57 03:40 sp4 cg 14:06 04:57 BR ER HOLD cg eb 14:06 04:57 ERHOLD- cg eb
[2023-05-24] MEDS ORDERED: KETOROLAC 30 MG/ML INJ ONE (03:50)
[2023-05-24] MEDS ORDERED: ASPIRIN 81 MG CHEWABLE TABLET ONE (03:50)
[2023-05-24] MEDS ORDERED: METOCLOPRAMIDE 10 MG/2mL INJ ONE (03:56)
[2023-05-24] MEDS ORDERED: DIPHENHYDRAMINE 50 MG/ML VIAL ONE (03:56)
--- NOTE | 2023-05-24 05:02 | P.HP ---
Certification for Inpatient Patient admitted to: Observation With expected LOS: <2 Midnights Patient will require the following post-hospital care: None Practitioner: I am a practitioner with admitting privileges, knowledge of patient current condition, hospital course, and medical plan of care. Services: Services provided to patient in accordance with Admission requirements found in Title 42 Section 412.3 of the Code of Federal Regulations <GiselDeo Severiano Casey - Last Filed: 05/24/23 04:58> Patient History Date of Service: 05/24/23 Reason for admission: Chest pain History of Present Illness: 62-year-old female with history of hypertension, hyperlipidemia presents the emergency department chief complaint of headache, palpitations, chest pain, vomiting. She admits to drinking a few beers throughout the evening and while resting began to have headache, palpitation she reports that her watch recorded a heart rate of 137, heart rate was elevated for around 10 minutes per patient with associated chest pain and vomiting. She was evaluated in the emergency department her labs were significant for chloride [address] chest negative for acute findings, CT head ordered and pending. ED provider wishes to admit under observation for chest pain, palpitations, nausea/vomiting/headache. - Past Medical/Surgical History -: Hypertension -: Hyperlipidemia -: Cholecystectomy -: Hysterectomy Psychosocial/ Personal History: Lives at home with family - Family History Family History: Reviewed- Non-Contributory - Social History Smoking Status: Former smoker Alcohol use: No CD- Drugs: No Caffeine use: Yes Place of Residence: Home <Deo Batres - Last Filed: 05/24/23 04:58> Date of Service: 05/24/23 <Wang Pillai - Last Filed: 05/24/23 12:41> Review of Systems 10-point ROS is otherwise unremarkable Cardiovascular: Chest Pain, Palpitations Gastrointestinal: Nausea, Vomiting <Deo Batres - Last Filed: 05/24/23 04:58> Physical Examination - Physical Exam General: Alert, In no apparent distress, Oriented x3 HEENT: Atraumatic, PERRLA, Mucous membr. moist/pink, EOMI, Sclerae nonicteric Neck: Supple, 2+ carotid pulse no bruit, No LAD, Without JVD or thyroid abnormality Respiratory: Clear to auscultation bilaterally, Normal air movement Cardiovascular: No edema, Regular rate/rhythm, Normal S1 S2 Capillary refill: <2 Seconds Gastrointestinal: Normal bowel sounds, No tenderness Musculoskeletal: No tenderness Integumentary: No rashes Neurological: Normal speech, Normal strength at 5/5 x4 extr, Normal tone, Normal affect - Studies Laboratory Data (last 24 hrs) 05/24/23 05/24/23 05/24/23 02:45 00:05 00:05 WBC 6.40 Hgb 15.1 H Hct 42.4 Plt Count 222 PT 10.0 INR 0.91 Sodium Potassium BUN Creatinine Glucose Magnesium Total Bilirubin AST ALT Alkaline Phosphatase Lipase 59 05/24/23 00:05 WBC Hgb Hct Plt Count PT INR Sodium 142 Potassium 3.8 BUN 8 Creatinine 0.79 Glucose 138 H Magnesium 2.2 Total Bilirubin 0.3 AST 18 ALT 36 Alkaline Phosphatase 136 H Lipase Microbiology Data (last 24 hrs): 05/24/23 00:09 Nasopharnyx Influenza Type A Antigen Screen - Final 05/24/23 00:09 Nasopharnyx Influenza Type B Antigen Screen - Final <Deo Batres - Last Filed: 05/24/23 04:58> - Studies Laboratory Data (last 24 hrs) 05/24/23 05/24/23 05/24/23 02:45 00:05 00:05 WBC 6.40 Hgb 15.1 H Hct 42.4 Plt Count 222 PT 10.0 INR 0.91 Sodium Potassium BUN Creatinine Glucose Magnesium Total Bilirubin AST ALT Alkaline Phosphatase Lipase 59 05/24/23 00:05 WBC Hgb Hct Plt Count PT INR Sodium 142 Potassium 3.8 BUN 8 Creatinine 0.79 Glucose 138 H Magnesium 2.2 Total Bilirubin 0.3 AST 18 ALT 36 Alkaline Phosphatase 136 H Lipase Microbiology Data (last 24 hrs): 05/24/23 00:09 Nasopharnyx Influenza Type A Antigen Screen - Final 05/24/23 00:09 Nasopharnyx Influenza Type B Antigen Screen - Final <Wang Pillai - Last Filed: 05/24/23 12:41> Assessment and Plan - Plan Assessment: Chest pain rule out ACS Palpitations Nausea/vomiting/headache Hypertension Hyperlipidemia Hyperchloremia Plan: Chest pain rule out ACS Trend troponins, monitor on telemetry, cardiology consult. Continue aspirin, statin. Reports stress test approximate 1 year ago was normal, never had a heart catheterization. Palpitations Monitor on telemetry TSH normal.currently in sinus rhythm with rate of 80. Nausea/vomiting/headache No abdominal pain or tenderness noted, clinically diet, advance as tolerated. Continue gentle IV fluids, antiemetics as needed. We will also obtain CT of the head. Hypertension Hyperlipidemia Continue home medications Hyperchloremia Likely secondary to GI losses, vomiting, continue IV fluids. Recheck chemistry later today. DVT PPX: Lovenox Code status: Full Discharge Plan: Home Plan to discharge in: 24 Hours - Advance Directives Does patient have a Living Will: No Does patient have a Durable POA for Healthcare: No - Code Status/Comfort Care Code Status Assessed: Yes (Full code) Critical Care: No Time Spent Managing Pts Care (In Minutes): 55 <Deo Batres - Last Filed: 05/24/23 04:58> Physician Review: Patient Assessed, Agree with Above Assessment and Plan <Wang Pillai - Last Filed: 05/24/23 12:41>
[2023-05-24] MEDS ORDERED: FAMOTIDINE 20 MG/2 ML VIAL IV ONE (05:08)
[2023-05-24] MEDS ORDERED: Ringers Lactate 1,000 ML IV SCH (08:11)
[2023-05-24] MEDS ORDERED: MORPHINE 2 MG/ML SYR IV PRN (08:11)
[2023-05-24] MEDS ORDERED: ONDANSETRON 4 MG/2 ML VIAL IV PRN (08:11)
[2023-05-24] MEDS ORDERED: PANTOPRAZOLE 40MG TABLET PO SCH (08:11)
[2023-05-24 08:15] VITALS: BMI 30.1
[2023-05-24 08:37] VITALS: O2SAT 100
[2023-05-24] MEDS ORDERED: ENOXAPARIN 40 MG/0.4 ML SQ SCH (09:00)
[2023-05-24] MEDS ORDERED: ASPIRIN EC 81 MG TAB PO SCH (09:00)
[2023-05-24 09:42] LABS: Magnesium 2.1 mg/dL (1.6-2.4); Potassium 4.3 mEq/L (3.5-5.1); Troponin High Sensitivity 6.7 pg/mL (<58.9)
[2023-05-24] MEDS ORDERED: Ringers Lactate 1,000 ML IV ONE (09:44)
[2023-05-24] MEDS ORDERED: ASPIRIN EC 81 MG TAB PO ONE (09:44)
[2023-05-24] MEDS ORDERED: PANTOPRAZOLE 40MG TABLET PO ONE (09:44)
[2023-05-24] MEDS ORDERED: ENOXAPARIN 40 MG/0.4 ML SQ ONE (09:44)
[2023-05-24] MEDS ORDERED: INFLUENZA VACCINE (for 6+ mo) 0.5 ML DOSE IMVAC ONE (12:00)
[2023-05-24 15:03] VITALS: TEMP 98
[2023-05-24 16:40] VITALS: BP 151/77
--- NOTE | 2023-05-24 17:09 | P.DS ---
Admission Date: 05/24/23 Discharge Date: 05/24/23 Disposition: ROUTINE DISCHARGE Discharge Condition: GOOD Reason for Admission: Chest pain Consultations: 1. Cardiology Hospital Course: DIAGNOSES: # Chest Pain - suspect Non-Cardiac # Palpitations- resolved # Hypertension # Hyperlipidemia HOSPITAL COURSE: Ms. Diane Morrell is a 62 year old female with a past medical history significant for hypertension and hyperlipidemia who was admitted to the [facility] on 05/24/2023 for chest pain and palpitations. She was admitted to the Medicine service. Upon further evaluation, her EKG was without STEMI criteria. Her serial troponin was 5.8 -> 6.2 -> 6.7 -> 7.6. Her chest x-ray revealed, "no acute cardiopulmonary disease seen." Her CT chest revealed, "minimal coronary artery calcifications. Vertebral anomaly T5. Otherwise unremarkable CT scan of the chest without contrast." Her CT head revealed, "no acute intracranial findings." Today, she states that she feels significantly better and requests to be discharged home. Cardiology was consulted and she was evaluated by Dr. Lee. From a cardiac standpoint, he has cleared her to be discharged home with plans for a follow-up appointment with him on 05/26/2023 to arrange for a Holter monitor. On 05/24/2023, she was seen on rounds and deemed medically stable for discharge. She was discharged with instructions to schedule follow-up appointments with her PCP (Dr. Smith) and with Cardiology (Dr. Lee). She was given the opportunity to ask questions and reported no further questions. Furthermore, all questions were answered to the best of my ability. A copy of this discharge summary will be sent to the above providers to facilitate continuity of care. Today, I personally spent 25 minutes on her case, of which greater than 50% of the time was spent in patient education, counseling, and coordination of care as described above. Vital Signs/Physical Exam: Temp Pulse Resp BP Pulse Ox 98 F 58 16 151/77 H 99 05/24/23 16:00 05/24/23 16:00 05/24/23 16:00 05/24/23 16:00 05/24/23 16:00 General: Alert, In no apparent distress, Oriented x3 HEENT: Atraumatic, Mucous membr. moist/pink, Sclerae nonicteric Neck: JVD not distended Respiratory: Clear to auscultation bilaterally, Normal air movement Cardiovascular: No edema, Regular rate/rhythm, Normal S1 S2, No gallops, No rubs, No murmurs Gastrointestinal: Normal bowel sounds, Soft and benign, Non-distended, No tenderness, No rebound, No guarding Musculoskeletal: No clubbing Integumentary: No rashes Neurological: Normal speech, Normal affect Laboratory Data at Discharge: WBC 6.40 thou/uL (4.3-10.9) 05/24/23 00:05 Hgb 15.1 g/dL (12.0-15.0) H 05/24/23 00:05 Hct 42.4 % (36.0-45.0) 05/24/23 00:05 Plt Count 222 thou/uL (152-406) 05/24/23 00:05 PT 10.0 SECONDS (9.5-12.5) 05/24/23 00:05 INR 0.91 05/24/23 00:05 Sodium 143 mEq/L (136-145) 05/24/23 09:18 Potassium 4.3 mEq/L (3.5-5.1) D 05/24/23 09:18 BUN 11 mg/dL (7-18) 05/24/23 09:18 Creatinine 0.73 mg/dL (0.55-1.02) 05/24/23 09:18 Glucose 100 mg/dL (74-106) 05/24/23 09:18 Magnesium 2.1 mg/dL (1.6-2.4) 05/24/23 09:18 Total Bilirubin 0.3 mg/dL (0.2-1.0) 05/24/23 00:05 AST 18 U/L (15-37) 05/24/23 00:05 ALT 36 U/L (13-56) 05/24/23 00:05 Alkaline Phosphatase 136 U/L (45-117) H 05/24/23 00:05 Triglycerides 92 mg/dL (<150) 05/24/23 09:18 Cholesterol 205 mg/dL (<200) H 05/24/23 09:18 HDL Cholesterol 70 mg/dL (40-60) H 05/24/23 09:18 Cholesterol/HDL Ratio 2.93 05/24/23 09:18 Lipase 59 U/L (13-75) 05/24/23 02:45 Home Medications: Atorvastatin Calcium 10 mg PO DAILY 05/24/23 Ergocalciferol (Vitamin D2) [Vitamin D 50,000 Unit Cap] 1.25 mg PO DAILY 05/24/23 Lisinopril [Zestril] 5 mg PO BID 05/24/23 Physician Discharge Instructions: 1. Please call and schedule a follow-up appointment with your PCP (Dr. Smith) in 3-5 days 2. Please call and schedule a follow-up appointment with Cardiology (Dr. Lee) on 05/26/2023 - He will schedule you for a monitoring analyst in his office Diet: AHA Activity: Ad ibeth Followup: Jean Smith, DO [Primary Care Provider] - Geovanny Lee MD [ACTIVE - CAN ADMIT] - Time spent managing pt's care (in minutes): 25
--- NOTE | 2023-05-24 18:23 | CON ---
Date of Consultation: 05/24/2023 Reason For Consultation: Palpitations. History Of Present Illness: 62-year-old female, history of hypertension, dyslipidemia, presented wit h palpitation, started after she came home, felt her heart is racing out of her chest. She felt very weak and lightheaded, did not pass out. Denies having any chest pain. No further episodes since ho spitalization. She had this issue multiple times in the past few months. Past Medical History: As outlined above in the HPI. Medications: Refer to reconciliation sheet for detailed list. Allergies: PENICILLIN, ACETAMINOPHEN, CLINDAMYCIN, HYDROCODONE. Family History: No premature coronary artery disease or cancer. Social History: She does not smoke or drink. Does not use any drugs. Review of Systems: All systems reviewed and they were negative except what mentioned in HPI. Physical Examination: Vital Signs: Reviewed. Head and Neck: Pupils are equal, reactive to light. Intact eye movements. No JVD. No cervical lym phadenopathy. Neck is supple. Thyroid is not enlarged. Lungs: Clear to auscultation bilaterally. No rhonchi, wheezing, or crackles. No accessory muscle u se. Heart: Regular rate and rhythm. No extra sounds. Abdomen: Soft, nontender. Bowel sounds positive. No organomegaly. No masses or hernia. No rigidi ty or rebound. Extremities: No edema, clubbing, or cyanosis. Intact pulses. Skin: No rash. No nodule. Neurologic: Alert, awake, oriented x3. No acute focal deficits appreciated. Investigations: Labs were reviewed. Assessment And Recommendations: 1.Palpitations, not clear etiology. This could be atrial fibrillation. I will keep monitoring on t elemetry and once she is released, we will plan for a long-term panel monitor placement. 2.Chest pain reported by ER notes and hospitalist notes. Patient declines having any chest pain at this moment. Cardiac enzymes are negative. Plan for outpatient cardiac workup on her. From cardiol ogy standpoint, she can be released and she can follow up with me in the office on Friday morning. /ANABELLEL Voice ID: [id number] Report ID: [id number]
--- NOTE | 2023-05-24 19:52 | RAD REPORT ---
EXAM DESCRIPTION: CT - Head Brain Wo Cont - 05/24/2023 6:58 am CLINICAL HISTORY: Headache, vomiting COMPARISON: None. TECHNIQUE: CT HEAD WITHOUT IV CONTRAST on 05/24/2023 4:20 AM CDT This exam was performed according to our departmental dose-optimization program, which includes autom ated exposure control, adjustment of the mA and/or kV according to patient size and/or use of iterati ve reconstruction technique. FINDINGS: There is no acute hemorrhage, mass effect or midline shift. Gay-white differentiation is preserved. There is no hydrocephalus. There is no significant volume loss for age. The calvarium is intact. Orbits and globes are unremarkable. The paranasal sinuses are clear. Mastoid air cells are clear. IMPRESSION: No acute intracranial findings. Electronically signed by: Júnior Wilkes MD 05/24/2023 6:38 AM CDT Due to temporary technical issues with the PACS/Fluency reporting system, reports are being signed by the in house radiologists without review as a courtesy to insure prompt reporting. The interpreting radiologist is fully responsible for the content of the report.
--- NOTE | 2023-05-24 19:55 | RAD REPORT ---
EXAM DESCRIPTION: CT - Thorax Wo Artur - 05/24/2023 6:51 am CLINICAL HISTORY: 62 years, Female, left chest pain anterior COMPARISON: None FINDINGS: Multiple transaxial tomograms of the chest were obtained from the lung apices through the adrenal glands, utilizing 5 mm slice thickness at 5 mm interval reconstruction without the administra tion of IV contrast. Multiplanar reformats in the sagittal and coronal plane were generated and reviewed. This exam was performed according to our departmental dose-optimization protocol, which includes auto mated exposure control, adjustment of the mA and/or kV according to patient size and/or use of iterat tanner reconstruction technique. The lungs parenchyma demonstrate to be clear. No evidence for pneumothorax. No masses and/or nodules are identified. The trachea mainstem bronchus demonstrate to be normal. There is no significant pleural and/or perica rdial effusions. The thoracic aorta demonstrate to be within normal limits. The heart is not enlarged. There are minim al coronary artery calcifications. Minimal aortic valvular calcifications. There is no significant mediastinal and/or hilar lymphadenopathy. The axillary regions demonstrate to be clear. The bone windows demonstrate mild bony osteopenia. 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 No significant skel etal lesions. Anterior spondylosis mid/lower thoracic spine. The visualized portions of the upper abdomen demonstrate status post cholecystectomy. IMPRESSION: Minimal coronary artery calcifications. Vertebral anomaly T5. Otherwise unremarkable CT scan of the chest without contrast. Electronically signed by: Vic Hernandez MD 05/24/2023 1:36 AM CDT Due to temporary technical issues with the PACS/Fluency reporting system, reports are being signed by the in house radiologists without review as a courtesy to insure prompt reporting. The interpreting radiologist is fully responsible for the content of the report.
--- NOTE | 2023-05-24 20:20 | RAD REPORT ---
EXAM DESCRIPTION: RAD - Chest Single View - 05/24/2023 12:45 am CLINICAL HISTORY: 62 years, Female, CHEST PAIN COMPARISON: None. FINDINGS: 1 x-ray views of the chest (portable) was obtained. No prior films are available for silvia rison. The cardiomediastinal silhouette demonstrate to be within normal limits. The heart demonstrate to be within normal limits. The thoracic aorta is mildly tortuous. The pulmonary vasculature is norm al distribution. Costophrenic angles are sharp. No areas of consolidation or masses are seen. Exter nal EKG leads within the [id number] limits diagnosis. The rest of the soft tissue and bony structu res demonstrate to be unremarkable. IMPRESSION: No acute cardiopulmonary disease seen. Electronically signed by: Vic Hernandez MD 05/24/2023 12:56 AM CDT Due to temporary technical issues with the PACS/Fluency reporting system, reports are being signed by the in house radiologists without review as a courtesy to insure prompt reporting. The interpreting radiologist is fully responsible for the content of the report.
[2023-05-24] MEDS ORDERED: ATORVASTATIN 40 MG TAB PO SCH (21:00)
--- NOTE | 2023-05-26 17:08 | EKG ---
Test Date: 2023-05-23 Test Time: 23:59:08 [employer]: [employer] MEASUREMENT RESULTS: Intervals: Rate: 96 IA: 174 QRSD: 90 QT: 312 QTc: 394 [place]: P: 4 IA: 174 QRS: 95 T: -1 INTERPRETIVE STATEMENTS: Normal sinus rhythm with sinus arrhythmia Rightward axis Abnormal QRS-T angle, consider primary T wave abnormality Abnormal ECG No previous ECG available for comparison Electronically Signed On 05-26-23 17:05:09 CDT by Geovanny Lee
== END 2023-05-24 17:22 | disposition home or self-care (01) ==
LOC: ER 23:46 → ERHOLD 05-24 04:31 → 2ND 05-24 15:01 → ERHOLD 05-24 16:30
PROVIDERS: ADMIT Internal Medicine; ATTEND Internal Medicine
DX: R07.9 Chest pain, unspecified (principal); R00.2 Palpitations; R11.2 Nausea with vomiting, unspecified; R51.9 Headache, unspecified; I10 Essential (primary) hypertension; E78.5 Hyperlipidemia, unspecified; E87.8 Other disorders of electrolyte and fluid balance, not elsewhere classified; Z88.0 Allergy status to penicillin; Z88.5 Allergy status to narcotic agent; Z88.3 Allergy status to other anti-infective agents; Z20.822 Contact with and (suspected) exposure to COVID-19
CPT/HCPCS: 93005; 85025; 80048 ×2; 36415; 83735 ×2; 85610; 80061; 80076; 84443; 84484 ×4; 84439; 83690; 83880; 87635; 87804 ×2; 70450; 71250; 71045; 99285; 82077; J2765; J1200; J1650; J2405; J7120; J7030 ×2; G0378 ×2

== ENCOUNTER 2023-09-04 01:29 | Observation (INO) | payer BC ==
[2023-09-04] MEDS ORDERED: ASPIRIN 81 MG CHEWABLE TABLET ONE (02:15)
[2023-09-04 02:22] LABS: Absolute Lymphocytes (CBC) 3.5 K/uL (0.7-4.9); Hematocrit 40.8 % (36.0-45.0); Lymphocytes % 46.2 % (15.3-44.8); MCV 92.9 fL (80-100); MPV 8.5 fL (7.6-11.3); Platelets 218 thou/uL (152-406); RBC Red Blood Cell Count 4.39 M/uL (3.86-4.86)
[2023-09-04 02:30] LABS: Protime INR 0.92
[2023-09-04 02:48] LABS: Albumin 4.1 g/dL (3.4-5.0); Bilirubin Direct 0.2 mg/dL (0-0.2); Bilirubin Indirect, Calculated 0.5 mg/dL (0.2-0.8); Bilirubin Total 0.7 mg/dL (0.2-1.0); Magnesium 2.4 mg/dL (1.6-2.4); Potassium 3.7 mEq/L (3.5-5.1); Protein, Total 7.7 g/dL (6.4-8.2); Thyroid Stimulating Hormone 1.81 uIU/mL (0.358-3.740); Troponin High Sensitivity 9.6 pg/mL (<58.9)
--- NOTE | 2023-09-04 06:31 | ER ---
Nurse's Notes [facility] Name: Diane Morrell Age: 62 yrs Sex: Female : 1960 Arrival Date: 09/04/2023 Time: 01:29 Bed 20 Private MD: Jean Smith Diagnosis: Angina pectoris, unspecified;Unstable angina Presentation: 09/04 01:47 Chief complaint: Patient states: I started having chest pain and palpitations a couple vc1 of hours ago. I had an abnormal stress test with Dr Lee and he said if I start having chest pain to come to the ER. Coronavirus screen: Vaccine status: Patient reports being unvaccinated. Client denies travel out of the [place] in the last 14 days. At this time, the client does not indicate any symptoms associated with coronavirus-19. Ebola Screen: Patient negative for fever greater than or equal to 101.5 degrees Fahrenheit, and additional compatible Ebola Virus Disease symptoms Patient denies exposure to infectious person. Patient denies travel to an Ebola-affected area in the 21 days before illness onset. No symptoms or risks identified at this time. Initial Sepsis Screen: Does the patient meet any 2 criteria? No. Patient's initial sepsis screen is negative. Does the patient have a suspected source of infection? No. Patient's initial sepsis screen is negative. Risk Assessment: Do you want to hurt yourself or someone else? Patient reports no desire to harm self or others. Onset of symptoms was September 04, 2023. 01:47 Method Of Arrival: Ambulatory vc1 01:47 Acuity: DINORAH 3 vc1 Triage Assessment: 01:52 General: Appears in no apparent distress. uncomfortable, Behavior is calm, cooperative, vc1 appropriate for age. Pain: Complains of pain in anterior aspect of left upper chest Pain does not radiate. Pain currently is 5 out of 10 on a pain scale. Quality of pain is described as aching, dull, heavy. EENT: No deficits noted. No signs and/or symptoms were reported regarding the EENT system. Neuro: Level of Consciousness is awake, alert, obeys commands, Oriented to person, place, time, situation, Appropriate for age. Cardiovascular: Reports chest pain, Chest pain is described as mild, quality is heaviness. Respiratory: Airway is patent Respiratory effort is even, unlabored, Respiratory pattern is regular, symmetrical. GI: No deficits noted. No signs and/or symptoms were reported involving the gastrointestinal system. : No deficits noted. No signs and/or symptoms were reported regarding the genitourinary system. Derm: No deficits noted. No signs and/or symptoms reported regarding the dermatologic system. Musculoskeletal: No deficits noted. No signs and/or symptoms reported regarding the musculoskeletal system. Historical: - Allergies: 01:50 Clindamycin; vc1 01:50 Latex; vc1 01:50 PENICILLINS; vc1 01:50 Vicodin; vc1 - PMHx: 01:50 Hypercholesterolemia; Hypertensive disorder; Dyphasia (Hypertensive disorder); Diabetes vc1 mellitus; diet controlled; - PSHx: 01:50 Tonsillectomy; Cholecystectomy; Total abdominal hysterectomy; vc1 - Immunization history:: Client reports having NOT received the Covid vaccine. Flu vaccine is up to date. - Social history:: Smoking status: Patient/guardian denies using tobacco, the patient reports quitting approximately 2007 years ago. - Family history:: not pertinent. Screenin:38 [facility] ED Fall Risk Assessment (Adult) History of falling in the last 3 months, ha1 including since admission No falls in past 3 months (0 pts) Confusion or Disorientation No (0 pts) Intoxicated or Sedated No (0 pts) Impaired Gait No (0 pts) Mobility Assist Device Used No (0 pt) Altered Elimination No (0 pt) Score/Fall Risk Level 0 - 2 = Low Risk Oriented to surroundings, Maintained a safe environment, Hourly rounding (assess needs \T\ fall precautionary measures) done. 01:54 Abuse screen: Denies threats or abuse. Nutritional screening: No deficits noted. vc1 Tuberculosis screening: No symptoms or risk factors identified. Assessment: 01:38 General: Appears uncomfortable, Behavior is calm, cooperative. Pain: Complains of pain ha1 in chest Pain does not radiate. Pain currently is 5 out of 10 on a pain scale. Quality of pain is described as pressure, Pain began suddenly. Neuro: Level of Consciousness is awake, alert, obeys commands, Oriented to person, place, time, situation. Cardiovascular: Capillary refill < 3 seconds Patient's skin is warm and dry. Cardiovascular: Reports chest pain, Heart tones S1 S2 present Rhythm is sinus rhythm. Respiratory: Airway is patent Respiratory effort is even, unlabored, Respiratory pattern is regular, symmetrical. Musculoskeletal: Circulation, motion, and sensation intact. Range of motion: intact in all extremities. 02:30 Reassessment: Patient and/or family updated on plan of care and expected duration. Pain ha1 level reassessed. Patient is alert, oriented x 3, equal unlabored respirations, skin warm/dry/pink. Patient states feeling better. Patient states symptoms have improved. 03:30 Reassessment: Patient and/or family updated on plan of care and expected duration. Pain ha1 level reassessed. Patient is alert, oriented x 3, equal unlabored respirations, skin warm/dry/pink. 04:24 Reassessment: Patient and/or family updated on plan of care and expected duration. Pain ha1 level reassessed. Patient is alert, oriented x 3, equal unlabored respirations, skin warm/dry/pink. 05:30 Reassessment: Patient and/or family updated on plan of care and expected duration. Pain ha1 level reassessed. Patient is alert, oriented x 3, equal unlabored respirations, skin warm/dry/pink. 06:30 Reassessment: Patient and/or family updated on plan of care and expected duration. Pain ha1 level reassessed. Patient is alert, oriented x 3, equal unlabored respirations, skin warm/dry/pink. Vital Signs: 01:47 Temp 97; Weight 81.19 kg; Height 5 ft. 3 in. ; Pain 5/10; vc1 01:50 BP 133 / 80; Pulse 70; Resp 18; Pulse Ox 100% on R/A; cg3 02:30 BP 148 / 84; Pulse 75; Resp 17 S; Pulse Ox 100% on R/A; ha1 03:40 BP 109 / 60; Pulse 66; Resp 17 S; Pulse Ox 99% on R/A; ha1 04:24 BP 102 / 56; Pulse 60; Resp 17 S; Pulse Ox 97% on R/A; ha1 05:30 BP 115 / 67; Pulse 60; Resp 17 S; Pulse Ox 99% on R/A; ha1 06:54 BP 118 / 67; Pulse 64; Resp 17 S; Pulse Ox 99% on R/A; ha1 01:47 Body Mass Index 31.71 (81.19 kg, 160.02 cm) vc1 01:47 Pain Scale: Adult vc1 ED Course: 01:37 Patient arrived in ED. gm2 01:37 Jean Smith DO is Private Physician. gm2 01:38 Patient has correct armband on for positive identification. Placed in gown. Bed in low ha1 position. Call light in reach. Side rails up X 1. Client placed on continuous cardiac and pulse oximetry monitoring. NIBP monitoring applied. 01:39 Pat Barker RN is Primary Nurse. ha1 01:50 Triage completed. vc1 01:51 Gustavo Rangel MD is Attending Physician. sp4 01:52 Arm band placed on right wrist. vc1 01:54 Patient maintains SpO2 saturation greater than 95% on room air. vc1 02:00 Inserted saline lock: 22 gauge in right wrist, using aseptic technique. Blood collected.ha1 02:12 Basic Metabolic Panel Sent. ha1 02:12 CBC with Diff Sent. ha1 02:12 LFT's Sent. ha1 02:12 Magnesium Sent. ha1 02:12 NT PRO-BNP Sent. ha1 02:12 PT-INR Sent. ha1 02:12 Troponin HS Sent. ha1 02:12 T4 Free Sent. ha1 02:12 TSH Sent. ha1 02:30 XRAY Chest (1 view) In Process Unspecified. EDMS 06:30 Pal Mathews is Hospitalizing Provider. sp4 Administered Medications: 02:18 Drug: Aspirin PO Chewable Tablet 324 mg PO once; 81 mg tablets x 4 Route: PO; ha1 06:50 Drug: Ondansetron IVP 4 mg IVP once; over 2 minutes Route: IVP; Site: right wrist; ha1 07:00 Follow up: Response: No adverse reaction; Pain is decreased rs5 06:52 Drug: morphine IVP or IV 2 mg IVP once over 4 mins Route: IVP; Infused Over: 4 mins; ha1 Site: right wrist; 07:00 Follow up: Response: No adverse reaction; Pain is decreased rs5 Medication: 01:54 VIS not applicable for this client. vc1 Outcome: 06:31 Decision to Hospitalize by Provider. sp4 08:35 Patient left the ED. aa5 Signatures: Dispatcher [employer] EDPA Ivet Anderson RN RN aa5 Aminah White RN RN vc1 Pat Barker, RN RN ha1 Anup Obregon, RN RN rs5 Gustavo Rangel MD MD sp4 Cecilia Braga 3 Kathy Mcdonnell 2
--- NOTE | 2023-09-04 06:32 | EDPHYS ---
Physician Documentation [facility] Name: Diane Morrell Age: 62 yrs Sex: Female : 1960 Arrival Date: 09/04/2023 Time: 01:29 Bed 20 Private MD: Jean Smith ED Physician Gustavo Rangel HPI: 09/04 01:51 This 62 yrs old Female presents to ER via Ambulatory with complaints of Chest sp4 Tightness. 02:19 62-year-old female with history of hypercholesterolemia hypertension dysphagia diabetes sp4 presents with acute onset chest pressure and palpitations starting at 5 PM yesterday.. 04:26 CT review from prior visit - EXAM DESCRIPTION: Thorax Wo Con 05/24/2023 1:31 AM CDT sp4 CLINICAL HISTORY: 62 years, Female, left chest pain anterior COMPARISON: None FINDINGS: Multiple transaxial tomograms of the chest were obtained from the lung apices through the adrenal glands, utilizing 5 mm slice thickness at 5 mm interval reconstruction without the administration of IV contrast. Multiplanar reformats in the sagittal and coronal plane were generated and reviewed. This exam was performed according to our departmental dose-optimization protocol, which includes automated exposure control, adjustment of the mA and/or kV according to patient size and/or use of iterative reconstruction technique. The lungs parenchyma demonstrate to be clear. No evidence for pneumothorax. No masses and/or nodules are identified. The trachea mainstem bronchus demonstrate to be normal. There is no significant pleural and/or pericardial effusions. The thoracic aorta demonstrate to be within normal limits. The heart is not enlarged. There are minimal coronary artery calcifications. Minimal aortic valvular calcifications. There is no significant mediastinal and/or hilar lymphadenopathy. The axillary regions demonstrate to be clear. The bone windows demonstrate mild bony osteopenia. 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 No significant skeletal lesions. Anterior spondylosis mid/lower thoracic spine. The visualized portions of the upper abdomen demonstrate status post cholecystectomy. IMPRESSION: Minimal coronary artery calcifications. Vertebral anomaly T5. Otherwise unremarkable CT scan of the chest without contrast. . Historical: - Allergies: 01:50 Clindamycin; vc1 01:50 Latex; vc1 01:50 PENICILLINS; vc1 01:50 Vicodin; vc1 - PMHx: 01:50 Hypercholesterolemia; Hypertensive disorder; Dyphasia (Hypertensive disorder); Diabetes vc1 mellitus; diet controlled; - PSHx: 01:50 Tonsillectomy; Cholecystectomy; Total abdominal hysterectomy; vc1 - Immunization history:: Client reports having NOT received the Covid vaccine. Flu vaccine is up to date. - Social history:: Smoking status: Patient/guardian denies using tobacco, the patient reports quitting approximately 2007 years ago. - Family history:: not pertinent. ROS: 02:19 Constitutional: Negative for fever, chills, and weight loss, positive chest pressure sp4 and palpitations 02:19 All other systems are negative, Exam: 02:19 Constitutional: This is a well developed, well nourished patient who is awake, alert, sp4 and in no acute distress. Head/Face: Normocephalic, atraumatic. Eyes: Pupils equal round and reactive to light, extra-ocular motions intact. Lids and lashes normal. Conjunctiva and sclera are not injected. Cornea within normal limits. Periorbital areas with no swelling, redness, or edema. ENT: Nares patent. No nasal discharge, no septal abnormalities noted. Tympanic membranes are normal and external auditory canals are clear. Oropharynx with no redness, swelling, or masses, exudates, or evidence of obstruction, uvula midline. Mucous membranes moist. Neck: Trachea midline, no thyromegaly or masses palpated, and no cervical lymphadenopathy. Supple, full range of motion without nuchal rigidity, or vertebral point tenderness. Chest/axilla: Normal chest wall appearance and motion. Nontender with no deformity. No lesions are appreciated. Cardiovascular: Regular rate and rhythm with a normal S1 and S2. No gallops, murmurs, or rubs. Normal PMI, no JVD. No pulse deficits. Respiratory: Lungs have equal breath sounds bilaterally, clear to auscultation and percussion. No rales, rhonchi or wheezes noted. No increased work of breathing, no retractions or nasal flaring. Abdomen/GI: Soft, non-tender, with normal bowel sounds. No distension or tympany. No guarding or rebound. No evidence of tenderness throughout. Back: No spinal tenderness. No costovertebral tenderness. Skin: Warm, dry with normal turgor. Normal color with no rashes, no lesions, and no evidence of cellulitis. MS/ Extremity: Pulses equal, no cyanosis. Neurovascular intact. Full, normal range of motion. Neuro: Awake and alert, GCS 15, oriented to person, place, time, and situation. Cranial nerves II-XII grossly intact. Motor strength 5/5 in all extremities. Sensory grossly intact. Psych: Awake, alert, with orientation to person, place and time. Behavior, mood, and affect are within normal limits 02:19 ECG was reviewed by the Attending Physician. EKG at 0 146 reveals sinus rhythm with occasional PVCs, sinus rhythm at the rate of 79 Vital Signs: 01:47 Temp 97; Weight 81.19 kg; Height 5 ft. 3 in. ; Pain 5/10; vc1 01:50 BP 133 / 80; Pulse 70; Resp 18; Pulse Ox 100% on R/A; cg3 02:30 BP 148 / 84; Pulse 75; Resp 17 S; Pulse Ox 100% on R/A; ha1 03:40 BP 109 / 60; Pulse 66; Resp 17 S; Pulse Ox 99% on R/A; ha1 04:24 BP 102 / 56; Pulse 60; Resp 17 S; Pulse Ox 97% on R/A; ha1 05:30 BP 115 / 67; Pulse 60; Resp 17 S; Pulse Ox 99% on R/A; ha1 06:54 BP 118 / 67; Pulse 64; Resp 17 S; Pulse Ox 99% on R/A; ha1 01:47 Body Mass Index 31.71 (81.19 kg, 160.02 cm) vc1 01:47 Pain Scale: Adult vc1 MDM: 01:52 Patient medically screened. sp4 04:25 ED course: EXAM DESCRIPTION: X-ray single view chest. CLINICAL HISTORY: 62 years sp4 Female, CHEST PAIN COMPARISON: 05/24/2023 TECHNIQUE: Single portable x-ray view of the chest performed on 09/04/2023 at 2:20 AM FINDINGS: The lungs are well expanded and are clear. There is no evidence of a pneumothorax. The cardiac silhouette is normal in size and configuration. The mediastinal contours are normal. No acute osseous abnormality is identified. No focal soft tissue abnormalities are seen. Lines and tubes: None. Free air: None identified, IMPRESSION: No evidence of acute intrathoracic disease. . 05:54 Differential diagnosis: abnormal EKG, acute myocardial infarction, acute pericarditis, sp4 anxiety, coronary artery disease chest wall pain. HEART Score: History: Moderately Suspicious (1), ECG: Normal (0), Age: > 45 and < 65 years (1), Risk Factors: > or = 3 Risk factors for atherosclerotic disease (2), Troponin: < or = 1 x Normal Limit (0), Total Score = 4. The patient was given aspirin in the Emergency Department. Data reviewed: vital signs, nurses notes, old medical records, lab test result(s), EKG, radiologic studies, plain films. 06:29 ED course: Patient presents with persistent chest pains and palpitations. Patient has sp4 negative ACS workup. Will at this time proceed with admission for Cardiologic assessment.. 09/04 01:51 Order name: Basic Metabolic Panel; Complete Time: 04:09/04 01:51 Order name: CBC with Diff; Complete Time: 04:21 09/04 01:51 Order name: LFT's; Complete Time: 04:21 4 09/04 01:51 Order name: Magnesium; Complete Time: 04:09/04 01:51 Order name: NT PRO-BNP; Complete Time: 04:09/04 01:51 Order name: PT-INR; Complete Time: 04:21 4 09/04 01:51 Order name: Troponin HS; Complete Time: 04:21 4 09/04 01:51 Order name: TSH; Complete Time: 04:21 09/04 01:51 Order name: T4 Free; Complete Time: 04:21 09/04 04:21 Order name: Troponin High Sensitivity; Complete Time: 05:48 4 09/04 07:03 Order name: Basic Metabolic Panel EDMS 09/04 07:03 Order name: Basic Metabolic Panel EDMS 09/04 07:03 Order name: Basic Metabolic Panel EDMS 09/04 07:03 Order name: Basic Metabolic Panel EDMS 09/04 07:03 Order name: CBC with Automated Diff EDMS 09/04 07:03 Order name: CBC with Automated Diff EDMS 09/04 07:03 Order name: CBC with Automated Diff EDMS 09/04 07:03 Order name: CBC with Automated Diff EDMS 09/04 07:03 Order name: Magnesium EDMS 09/04 07:03 Order name: Magnesium EDMS 09/04 07:03 Order name: Magnesium EDMS 09/04 07:03 Order name: Magnesium [facility] 09/04 07:03 Order name: Troponin High Sensitivity [facility] 09/04 07:03 Order name: Troponin High Sensitivity [facility] 09/04 07:03 Order name: Troponin High Sensitivity [facility] 09/04 07:03 Order name: Troponin High Sensitivity [facility] 09/04 07:05 Order name: Lipid Profile [facility] 09/04 01:51 Order name: XRAY Chest (1 view) [facility] 09/04 01:51 Order name: EKG; Complete Time: 01:51 sp4 09/04 07:03 Order name: CONS Physician Consult [facility] 09/04 01:51 Order name: Cardiac monitoring; Complete Time: 02:12 sp4 09/04 01:51 Order name: EKG - Nurse/Tech; Complete Time: 02:12 4 09/04 01:51 Order name: IV Saline Lock; Complete Time: 02:12 sp4 09/04 01:51 Order name: Labs collected and sent; Complete Time: 02:12 4 09/04 01:51 Order name: O2 Per Protocol; Complete Time: 02:12 sp4 09/04 01:51 Order name: O2 Sat Monitoring; Complete Time: 02:12 sp4 09/04 06:29 Order name: NPO; Complete Time: 06:32 sp4 EC:19 Rate is 79 beats/min. Rhythm is regular, Normal Sinus Rhythm with Occasional PVCs. QRS sp4 [place] is Normal. RI interval is normal. QRS interval is normal. QT interval is normal. No Q waves. T waves are Normal. No ST changes noted. Clinical impression: No evidence of ischemia. Interpreted by me. Reviewed by me. Administered Medications: 02:18 Drug: Aspirin PO Chewable Tablet 324 mg PO once; 81 mg tablets x 4 Route: PO; ha1 06:50 Drug: Ondansetron IVP 4 mg IVP once; over 2 minutes Route: IVP; Site: right wrist; ha1 07:00 Follow up: Response: No adverse reaction; Pain is decreased rs5 06:52 Drug: morphine IVP or IV 2 mg IVP once over 4 mins Route: IVP; Infused Over: 4 mins; ha1 Site: right wrist; 07:00 Follow up: Response: No adverse reaction; Pain is decreased rs5 Disposition Summary: 09/04/23 06:31 Hospitalization Ordered Notes: Hospitalization Status: Observation sp4 Provider: Pal Mathews sp4 Condition: Stable sp4 Problem: new sp4 Symptoms: have improved sp4 Bed/Room Type: Standard sp4 Location: [facility] ER HOLD(09/04/23 07:59) kb3 Room Assignment: ERHOLD-(09/04/23 07:59) kb3 Diagnosis - Angina pectoris, unspecified sp4 - Unstable angina sp4 Forms: - Medication Reconciliation Form sp4 - SBAR form sp4 - Leadership Thank You Letter sp4 Signatures: Dispatcher [employer] EDMS Aminah White RN RN vc1 Pat Barker RN RN ha1 Ayana Underwood RN RN kb3 Gustavo Rangel MD MD sp4 Anup Obregon RN rs5 Corrections: (The following items were deleted from the chart) 07:59 06:31 Telemetry/MedSurg (observation) sp4 kb3 07:59 06:31 sp4 kb3
[2023-09-04] MEDS ORDERED: ONDANSETRON 4 MG/2 ML VIAL ONE (06:44)
[2023-09-04] MEDS ORDERED: MORPHINE 2 MG/ML SYR ONE (06:45)
[2023-09-04] MEDS ORDERED: ONDANSETRON 4 MG/2 ML VIAL IV PRN (06:59)
[2023-09-04] MEDS ORDERED: ACETAMINOPHEN 500 MG TAB PO PRN (06:59)
[2023-09-04] MEDS ORDERED: MORPHINE 2 MG/ML SYR IV PRN (07:02)
[2023-09-04] MEDS ORDERED: NITROGLYCERIN 0.4 MG/TAB SL PRN ×2 (07:02→14:23)
--- NOTE | 2023-09-04 07:04 | P.HP ---
Certification for Inpatient Patient admitted to: Observation With expected LOS: <2 Midnights Practitioner: I am a practitioner with admitting privileges, knowledge of patient current condition, hospital course, and medical plan of care. Services: Services provided to patient in accordance with Admission requirements found in Title 42 Section 412.3 of the Code of Federal Regulations Patient History Date of Service: 09/04/23 History of Present Illness: 62year-old female with history of hypertension, hyperlipidemia, diabetes, sleep apnea presents the emergency department chief complaint of chest pain tightness. Reports symptoms started at 5 PM yesterday. She reports that it is to her left shoulder, she reports previous abnormal stress test, plan for outpatient cardiac cath. She reports chest pain is progressively getting worse. She arrived to the emergency room for evaluation. She reports chest pain is associated with shortness of breath that is worse with exertion. She denies fever, diaphoresis, edema, nausea vomiting. Plan to admit for unstable angina, shortness of breath on exertion, with cardiology to consult, patient n.p.o. for cardiac stress test today. Abnormal stress test, CT of the chest IMPRESSION: Minimal coronary artery calcifications. Vertebral anomaly T5. Otherwise unremarkable CT scan of the chest without contrast. BP 133 / 80; Pulse 70; Resp 18; Pulse Ox 100% on R/A; chest x-ray IMPRESSION: No evidence of acute intrathoracic disease. EKG s 79 beats/min. Rhythm is regular, Normal Sinus Rhythm with Occasional PVCs. QRS [place] is Normal. [place] interval is normal. QRS interval is normal. QT interval is normal. No Q waves. T waves are Normal. No ST changes noted. Clinical impression: No evidence of ischemia. She was treated with aspirin 325, Zofran, 2 mg of morphine in the emergency room. Allergies Penicillins Allergy (Unknown, Verified 05/24/23 08:11) Anaphylaxis acetaminophen [From Vicodin] Allergy (Verified 05/24/23 08:11) Hives clindamycin Allergy (Verified 05/24/23 08:11) Hives/Rash hydrocodone [From Vicodin] Allergy (Verified 05/24/23 08:11) Hives Iodinated Contrast Media Allergy (Verified 09/04/23 09:08) Itching/Hives/Rash Latex, Natural Rubber Allergy (Verified 05/24/23 08:11) Rash Home Medications: Atorvastatin Calcium 10 mg PO BID 05/24/23 Lisinopril [Zestril] 10 mg PO BID 05/24/23 - Past Medical/Surgical History -: Hypertension -: Hyperlipidemia -: Cholecystectomy -: Hysterectomy Psychosocial/ Personal History: Lives at home with family - Social History Alcohol use: No CD- Drugs: No Caffeine use: Yes Review of Systems per HPI Physical Examination - Physical Exam General: Alert, In no apparent distress, Oriented x3 HEENT: Atraumatic, Normocephalic Neck: Supple, 2+ carotid pulse no bruit Respiratory: Clear to auscultation bilaterally, Normal air movement Cardiovascular: No edema, Normal pulses Gastrointestinal: Normal bowel sounds, Soft and benign, Non-distended Musculoskeletal: No clubbing, No swelling Integumentary: No rashes, No breakdown Neurological: Normal speech, Normal strength at 5/5 x4 extr - Studies Laboratory Data (last 24 hrs) 09/04/23 09/04/23 09/04/23 02:08 02:08 02:08 WBC 7.60 Hgb 13.8 Hct 40.8 Plt Count 218 PT 10.1 INR 0.92 Sodium 138 Potassium 3.7 BUN 12 Creatinine 0.70 Glucose 122 H Magnesium 2.4 Total Bilirubin 0.7 AST 18 ALT 36 Alkaline Phosphatase 112 Assessment and Plan - Plan Assessment: Unstable angina Chest pain rule out ACS Hypertension Hyperlipidemia Hyperchloremia Sleep apnea Plan: Unstable angina Chest pain rule out ACS Trend troponins, monitor on telemetry, cardiology consult. Continue aspirin, statin. 09/04 Dr. Lee Status postcardiac cath Findings: 1. Left main; large, normal. 2. LAD is a evofwmib-eh-gcuiu size vessel and appears to be normal and then tapers significantly in the distal portion and there is a long stenosis that is 40%, but the vessel is less than 1 mm diagonal branch #1 has luminal irregularities throughout and focal 40% stenosis. 3. Left circumflex is very large and codominant. The proximal segment is normal. OM1 branch is very large, has ostial 50% stenosis and after the takeoff of the OM, there is a lesion that is focal 50% stenosis and then there is another 1 that is 40% stenosis. The rest of the left circumflex appears normal. 4. RCA, very large and codominant proximal 10% to 20%, mid 30% than its normal vessel and the PLB appears to be normal and PDA has mid 30% stenosis. 5. LVEDP is 23 mmHg, which is elevated. Conclusion: 1. Moderate coronary artery disease. 2. Elevated LVEDP. Recommendation: 1. Aggressive medical management and close monitoring for coronary artery disease and use nitroglycerin long-acting, like Imdur. 2. Use low-dose Lasix 20 mg daily and the patient can be released today and fo llow up with me in the office in 1 week Hypertension Hyperlipidemia Continue home medications DVT PPX: Lovenox Code status: Full Discharge Plan: Home Plan to discharge in: 24 Hours Plan to discharge in: 24 Hours - Advance Directives Does patient have a Living Will: No Does patient have a Durable POA for Healthcare: No - Code Status/Comfort Care Code Status: Full Code Critical Care: No Time Spent Managing Pts Care (In Minutes): 55
[2023-09-04] MEDS ORDERED: lisinopriL 5 MG TAB ONE (07:55)
[2023-09-04 08:47] VITALS: BMI 32.4
[2023-09-04] MEDS ORDERED: NA CHLORIDE 0.9% 500 ML ONE (08:48)
[2023-09-04] MEDS ORDERED: ENOXAPARIN 40 MG/0.4 ML SQ SCH (09:00)
[2023-09-04] MEDS ORDERED: lisinopriL 5 MG TAB PO SCH (09:00)
[2023-09-04] MEDS ORDERED: HEPA 1000U/500MLS 2,000 UNIT/1,000 ML BAG IV ONE (09:12)
[2023-09-04] MEDS ORDERED: MIDAZOLAM HCL 2 MG/2 ML INJ ONE (09:13)
[2023-09-04] MEDS ORDERED: VERAPAMIL HCL 10 MG/4 ML VIAL IV ONE (09:13)
[2023-09-04] MEDS ORDERED: FENTANYL CITR 100 MCG/2 ML ONE (09:13)
[2023-09-04] MEDS ORDERED: LIDOCAINE 1% 20 ML MDV ONE (09:13)
[2023-09-04] MEDS ORDERED: HEPARIN 10,000 UNIT/10 ML VIAL IV ONE (09:14)
[2023-09-04] MEDS ORDERED: TICAGRELOR 90 MG TABLET PO ONE (09:14)
[2023-09-04] MEDS ORDERED: ATROPINE SULF 1 MG/10 ML SYR IV ONE (09:14)
[2023-09-04] MEDS ORDERED: CLOPIDOGREL 75 MG TABLET ONE (09:14)
[2023-09-04] MEDS ORDERED: HEPARIN 5000 UNIT/ML 1 ML VIAL ONE (09:14)
[2023-09-04] MEDS ORDERED: ASPIRIN 325 MG TAB ONE (09:15)
[2023-09-04] MEDS ORDERED: DIPHENHYDRAMINE 50 MG/ML VIAL ONE (09:33)
[2023-09-04] MEDS ORDERED: METHYLPREDNISOLONE 125 MG INJ ONE (09:33)
--- NOTE | 2023-09-04 11:30 | CON ---
Date of Consultation: 09/04/2023 Reason For Consultation: Chest pain. History Of Present Illness: This is a 62-year-old female, history of hypertension, dyslipidemia, obs tructive sleep apnea. She was evaluated in the office due to substernal chest pain, pressure like, r adiates to her shoulder and left upper extremity, exacerbated with activities, and she had a stress t est that showed septal reversible defect. Initially, we will plan to do coronary angiogram as an out patient. However, the patient's chest pain kept getting worse, so she presented to the emergency [facility] and has been having pain on and off since yesterday and does have dyspnea on exertion with it as we ll. Past Medical History: Hypertension, dyslipidemia, sleep apnea. Medications: Refer reconciliation sheet for detailed list. Allergies: SHE IS ALLERGIC TO ACETAMINOPHEN, CLINDAMYCIN, HYDROCODONE, PENICILLIN, IODINE, AND SHE G ETS RASH WITH IODINE. Family History: No premature coronary artery disease or cancer. Social History: She does not smoke or drink. Does not use any drugs. Review of Systems: All systems reviewed and they are negative except as mentioned in the HPI. Physical Examination: Vital Signs: Reviewed. Head and Neck: Pupils are equal, reactive to light. Intact eye movements. No JVD. No cervical lym phadenopathy. Neck: Supple. Thyroid is not enlarged. Lungs: Clear to auscultation bilaterally. No rhonchi, rales, or crackles. No accessory muscle use. Heart: Regular rate and rhythm. No extra sounds. Abdomen: Soft, nontender. Bowel sounds positive. No organomegaly. No masses or hernia. No rigidi ty or rebound. Extremities: No edema, clubbing, or cyanosis. Intact pulses. Skin: No rashes. Neurologic: Alert, awake, oriented x3. No acute focal deficits appreciated. Investigations: Labs were reviewed. Assessment/recommendation: 1.Unstable angina. Chest pain is new and frequent with abnormal stress test. Keep her n.p.o. for c oronary angiogram. Continue baby aspirin for now pending left heart catheterization. 2.Shortness of breath on exertion, could be angina equivalent or diastolic heart failure. We will f yesyther re-evaluate after the coronary angiogram. 3.Hypertension. Blood pressure is controlled. 4.Dyslipidemia. Continue Crestor. SR/MODL Voice ID: [id number] Report ID: [id number]
--- NOTE | 2023-09-04 11:39 | OP ---
Date of Procedure: 09/04/2023 Surgeon: MARCELA UGALDE Procedures Performed: 1.Selective coronary angiogram. 2.Left heart catheterization. Indication: Unstable angina with abnormal stress test. Access: 1.Right radial artery 6-Cuban closed with TR band. 2.Right femoral artery 6-Cuban closed with 6-Cuban Angio-Seal. Complications: None. Bleeding: Less than 50 mL. Anesthesia: Total sedation time was 45 minutes. Description Of Procedure: After risks, benefits, alternatives were explained, the patient agreed to proceed and signed informed consent. The patient was brought into cardiac catheterization laboratory , prepped and draped in the usual sterile fashion. Then, I accessed right radial artery using pediat chapin micropuncture kit and placed 6-Cuban Slender sheath and try to take a 6-Cuban [place] 4.0 cathete r into the aortic root over J-wire. J-wire went to the aortic root, but could not pass the catheter. I did a limited angiogram of the radial artery. It was very small and half the size of the cathete r, so decided to abort this access and then I obtained the right common femoral artery access using u ltrasound guidance, fluoroscopy and micropuncture kit to place 6-Cuban [place] sheath. We took 6-F rench JL4 catheter over J-wire into the aortic root, engaged left main and took standard views and ex changed for a 6-Cuban JR4 catheter and I crossed the aortic valve over the wire, measured the LVEDP and pullback, not recorded any gradient and then engaged the RCA, took standard views and then remove d the catheter and the groin sheath was removed and 6-Cuban Angio-Seal was used for closure after do ing a limited angiogram of the groin and then the radial sheath was removed and TR band was placed wi th good hemostasis. Findings: 1.Left main; large, normal. 2.LAD is a zgfhupmx-zv-orqkv size vessel and appears to be normal and then tapers significantly in t he distal portion and there is a long stenosis that is 40%, but the vessel is less than 1 mm diagonal branch #1 has luminal irregularities throughout and focal 40% stenosis. 3.Left circumflex is very large and codominant. The proximal segment is normal. OM1 branch is very large, has ostial 50% stenosis and after the takeoff of the OM, there is a lesion that is focal 50% stenosis and then there is another 1 that is 40% stenosis. The rest of the left circumflex appears n ormal. 4.RCA, very large and codominant proximal 10% to 20%, mid 30% than its normal vessel and the PLB ion ears to be normal and PDA has mid 30% stenosis. 5.LVEDP is 23 mmHg, which is elevated. Conclusion: 1.Moderate coronary artery disease. 2.Elevated LVEDP. Recommendation: 1.Aggressive medical management and close monitoring for coronary artery disease and use nitroglycer in long-acting, like Imdur. 2.Use low-dose Lasix 20 mg daily and the patient can be released today and follow up with me in the office in 1 week. /JOSE Voice ID: [id number] Report ID: [id number]
[2023-09-04 13:38] VITALS: O2SAT 93
--- NOTE | 2023-09-04 13:45 | RAD REPORT ---
EXAM DESCRIPTION: RAD - Chest Single View - 09/04/2023 2:28 am CLINICAL HISTORY: 62 years Female, CHEST PAIN COMPARISON: 05/24/2023 TECHNIQUE: Single portable x-ray view of the chest performed on 09/04/2023 at 2:20 AM FINDINGS: The lungs are well expanded and are clear. There is no evidence of a pneumothorax. The cardiac silhouette is normal in size and configuration. The mediastinal contours are normal. No acute osseous abnormality is identified. No focal soft tissue abnormalities are seen. Lines and tubes: None. Free air: None identified, IMPRESSION: No evidence of acute intrathoracic disease. Electronically signed by: Latricia Carlisle DO 09/04/2023 03:03 AM AUTOMATED PROCESS OPERATOR Due to temporary technical issues with the PACS/Fluency reporting system, reports are being signed by the in house radiologist without review as a courtesy to ensure prompt reporting. The interpreting r adiologist is fully responsible for the content of the report.
--- NOTE | 2023-09-04 14:24 | P.DS ---
Admission Date: 09/04/23 Discharge Date: 09/04/23 Disposition: ROUTINE DISCHARGE Discharge Condition: GOOD Brief History of Present Illness: 62year-old female with history of hypertension, hyperlipidemia, diabetes, sleep apnea presents the emergency department chief complaint of chest pain tightness. Reports symptoms started at 5 PM yesterday. She reports that it is to her left shoulder, she reports previous abnormal stress test, plan for outpatient cardiac cath. She reports chest pain is progressively getting worse. She arrived to the emergency room for evaluation. She reports chest pain is associated with shortness of breath that is worse with exertion. She denies fever, diaphoresis, edema, nausea vomiting. Plan to admit for unstable angina, shortness of breath on exertion, with cardiology to consult, patient n.p.o. for cardiac stress test today. Abnormal stress test, CT of the chest IMPRESSION: Minimal coronary artery calcifications. Vertebral anomaly T5. Otherwise unremarkable CT scan of the chest without contrast. BP 133 / 80; Pulse 70; Resp 18; Pulse Ox 100% on R/A; chest x-ray IMPRESSION: No evidence of acute intrathoracic disease. EKG s 79 beats/min. Rhythm is regular, Normal Sinus Rhythm with Occasional PVCs. QRS [place] is Normal. [place] interval is normal. QRS interval is normal. QT interval is normal. No Q waves. T waves are Normal. No ST changes noted. Clinical impression: No evidence of ischemia. She was treated with aspirin 325, Zofran, 2 mg of morphine in the emergency room. - Physical Exam General: Alert, In no apparent distress, Oriented x3 HEENT: Atraumatic, Normocephalic Neck: Supple, 2+ carotid pulse no bruit Respiratory: Clear to auscultation bilaterally, Normal air movement Cardiovascular: No edema, Normal pulses Gastrointestinal: Normal bowel sounds, Soft and benign, Non-distended Musculoskeletal: No clubbing, No swelling Integumentary: No rashes, No breakdown Neurological: Normal speech, Normal strength at 5/5 x4 extr Hospital Course: 62-year-old year-old patient presented with past medical history of hypertension, hyperlipidemia, sleep apnea, presented to the emergency room with chest pain. Troponins were normal,. Was noted to have chest pain rule out MO. Was treated with cardiac catheterization with Dr. Lee with no interventions.Condition improved with as needed analgesics Stable for discharge to follow-up appointment with cardiology in 1 week, primary care physician. PROBLEM: Chest pain Moderate coronary artery disease 09/04 Status postcardiac cath-plan to treat with aggressive cardiovascular disease medical management, nitro, Imdur, Lasix. cardiology Recommendation: 1. Aggressive medical management and close monitoring for coronary artery disease and use nitroglycerin long-acting, like Imdur. 2. Use low-dose Lasix 20 mg daily and the patient can be released today and follow up with me in the office in 1 week RX lasix 40 mg instructed to take 1/2 tab daily with RX 10 meq of postassium daily Rx Isorbide 30 mg daily RX Sublingual nitro as need for chest pain (1 every 5 min x 3) go to ER if CP unrelieved by nitro Continue home medicines as previously prescribed GOAL: Clear understanding of disease process INSTRUCTIONS: Physician Discharge Instructions: -DC IV and DC home -Follow-up with PCP in 1 to 2 weeks -Please call Dr. Jackson at [phone] if any questions regarding hospital stay -Please call nursing station at [phone] if any nursing or medication questions -Return to the emergency room if symptoms worsen Diet: ADA, low sodium Activity: Fall precautions DME: Date Ordered: Name of Company: [employer] Services Needed: None Date or Referral: IMMUNIZATION Influenza Vaccine Indicated: Influenza Vaccine Given: Date Given: Pneumonia Vaccine Indicated: Pneumonia Vaccine Given: Date Given: Vital Signs/Physical Exam: Temp Pulse Resp BP Pulse Ox 98.6 F 90 18 132/70 95 09/04/23 14:05 09/04/23 14:05 09/04/23 14:05 09/04/23 14:05 09/04/23 14:05 Laboratory Data at Discharge: WBC 7.60 thou/uL (4.3-10.9) 09/04/23 02:08 Hgb 13.8 g/dL (12.0-15.0) 09/04/23 02:08 Hct 40.8 % (36.0-45.0) 09/04/23 02:08 Plt Count 218 thou/uL (152-406) 09/04/23 02:08 PT 10.1 SECONDS (9.5-12.5) 09/04/23 02:08 INR 0.92 09/04/23 02:08 Sodium 138 mEq/L (136-145) 09/04/23 02:08 Potassium 3.7 mEq/L (3.5-5.1) 09/04/23 02:08 BUN 12 mg/dL (7-18) 09/04/23 02:08 Creatinine 0.70 mg/dL (0.55-1.02) 09/04/23 02:08 Glucose 122 mg/dL (74-106) H 09/04/23 02:08 Magnesium 2.4 mg/dL (1.6-2.4) 09/04/23 02:08 Total Bilirubin 0.7 mg/dL (0.2-1.0) 09/04/23 02:08 AST 18 U/L (15-37) 09/04/23 02:08 ALT 36 U/L (13-56) 09/04/23 02:08 Alkaline Phosphatase 112 U/L (45-117) 09/04/23 02:08 Home Medications: Atorvastatin Calcium 10 mg PO BID 05/24/23 Lisinopril [Zestril] 10 mg PO BID 05/24/23 Furosemide [Lasix] 40 mg PO DAILY #30 09/04/23 Isosorbide Mononitrate [Isosorbide Mononitrate ER] 30 mg PO DAILY 30 Days #30 tab 09/04/23 Nitroglycerin [Nitrostat*] 0.4 mg SL UD PRN 30 Days #1 bottle 09/04/23 Potassium Chloride [K-Dur] 10 meq PO DAILY 30 Days #30 tab 09/04/23 New Medications: Isosorbide Mononitrate [Isosorbide Mononitrate ER] 30 mg PO DAILY 30 Days #30 tab Potassium Chloride [K-Dur] 10 meq PO DAILY 30 Days #30 tab Furosemide [Lasix] 40 mg PO DAILY #30 Nitroglycerin [Nitrostat*] 0.4 mg SL UD PRN 30 Days #1 bottle PRN Reason: Pain Scale 2-4 (Mild) Diet: [facility] Followup: Jean Smith DO [Primary Care Provider] - Geovanny Lee MD [ACTIVE - CAN ADMIT] - 1 Week Time spent managing pt's care (in minutes): 55
--- NOTE | 2023-09-04 16:26 | EKG ---
Test Date: 2023-09-04 Test Time: 01:46:34 Equipment Validation Engineer: MILA MEASUREMENT RESULTS: Intervals: Rate: 79 DE: 172 QRSD: 86 QT: 374 QTc: 428 [place]: P: 40 DE: 172 QRS: 22 T: 59 INTERPRETIVE STATEMENTS: Sinus rhythm with sinus arrhythmia with occasional premature ventricular complexes Otherwise normal ECG Compared to ECG 05/23/2023 23:59:08 Ventricular premature complex(es) now present Right-axis deviation no longer present T-wave abnormality no longer present Electronically Signed On 09-04-23 16:25:01 ANTHROPOLOGY DEPARTMENT CHAIR by Geovanny Lee
[2023-09-04 16:27] VITALS: BP 131/77; TEMP 98
[2023-09-04] MEDS ORDERED: ATORVASTATIN 10 MG TAB PO SCH (21:00)
[2023-09-05] MEDS ORDERED: ISOSORBIDE MONO SR 30 MG TAB PO SCH (09:00)
[2023-09-05] MEDS ORDERED: FUROSEMIDE 40 MG/4 ML VIAL IV SCH (09:00)
== END 2023-09-04 17:05 | disposition home or self-care (01) ==
LOC: ER 01:29 → ERHOLD 06:57 → 2ND 12:38
PROVIDERS: ADMIT Hospitalist; ATTEND Hospitalist
PROC: 4A023N7 Measurement of Cardiac Sampling and Pressure, Left Heart, Percutaneous Approach (ICD-10-PCS; principal; 2023-09-04)
PROC: B2111ZZ Fluoroscopy of Multiple Coronary Arteries using Low Osmolar Contrast (ICD-10-PCS; 2023-09-04)
DX: I25.110 Atherosclerotic heart disease of native coronary artery with unstable angina pectoris (principal); I10 Essential (primary) hypertension; E78.5 Hyperlipidemia, unspecified; E11.9 Type 2 diabetes mellitus without complications; G47.33 Obstructive sleep apnea (adult) (pediatric); E87.8 Other disorders of electrolyte and fluid balance, not elsewhere classified; Z87.891 Personal history of nicotine dependence; Z88.0 Allergy status to penicillin; Z88.5 Allergy status to narcotic agent; Z88.6 Allergy status to analgesic agent; Z88.8 Allergy status to other drugs, medicaments and biological substances; Z91.040 Latex allergy status; Z90.49 Acquired absence of other specified parts of digestive tract; Z90.710 Acquired absence of both cervix and uterus
CPT/HCPCS: 93005; 85025; 80048; 36415; 83735; 85610; 82947; 80076; 84443; 84484 ×3; 84439; 83880; 71045; 93458; 76937; C1893; C1760; Q9967; J1644; J2001; J1200; J3010; J2270; J2930; J2405; J7040; 99152; G0378; J0461; J2250

== ENCOUNTER → 2023-09-05 | Emergency (ER) | payer BC ==
[~2023-09-05] MED LIST: FENTANYL CITR 100 MCG/2 ML ONE; KETOROLAC 30 MG/ML INJ ONE
[2023-09-05 22:57] LABS: Absolute Lymphocytes (CBC) 3.4 K/uL (0.7-4.9); Hematocrit 38.2 % (36.0-45.0); Lymphocytes % 35.2 % (15.3-44.8); MCV 91.6 fL (80-100); MPV 8.6 fL (7.6-11.3); Platelets 217 thou/uL (152-406); RBC Red Blood Cell Count 4.17 M/uL (3.86-4.86)
[2023-09-05 23:00] LABS: Protime INR 0.93
[2023-09-05 23:08] LABS: Potassium 3.9 mEq/L (3.5-5.1)
--- NOTE | 2023-09-06 00:43 | ER ---
Nurse's Notes [facility] Name: Diane Morrell Age: 62 yrs Sex: Female : 1960 Arrival Date: 09/05/2023 Time: 21:50 Bed 13 Private MD: Diagnosis: Pain in right wrist;Pain in hand and fingers Presentation: 09/05 21:57 Chief complaint: EMS states: had angiogram yesterday morning, failed access on the rv right wrist, went in via femoral, did not placed stent and was discharged. since then, has been complaining of pain and swelling on the right wrist puncture site. denies fever. Coronavirus screen: At this time, the client does not indicate any symptoms associated with coronavirus-19. Ebola Screen: No symptoms or risks identified at this time. Initial Sepsis Screen: Does the patient meet any 2 criteria? No. Patient's initial sepsis screen is negative. Does the patient have a suspected source of infection? No. Patient's initial sepsis screen is negative. Risk Assessment: Do you want to hurt yourself or someone else? Patient reports no desire to harm self or others. Onset of symptoms was September 05, 2023. 21:57 Method Of Arrival: Ambulatory rv 21:57 Acuity: DINORAH 3 rv Triage Assessment: 22:01 General: Appears comfortable, Behavior is calm, cooperative. Pain: Complains of pain in rv right wrist. Neuro: Level of Consciousness is awake, alert, obeys commands, Oriented to person, place, time, situation. Cardiovascular: Capillary refill < 3 seconds Patient's skin is warm and dry. Respiratory: Airway is patent Respiratory effort is even, unlabored. GI: No signs and/or symptoms were reported involving the gastrointestinal system. : No signs and/or symptoms were reported regarding the genitourinary system. Derm: Skin is intact. Historical: - Allergies: 22:01 Clindamycin; rv 22:01 Latex; rv 22:01 PENICILLINS; rv 22:01 Vicodin; rv - PMHx: 22:01 diabetes mellitus ; diet controlled; Dyphasia (Hypertensive disord); rv Hypercholesterolemia; Hypertensive disorder; - PSHx: 22:01 Cholecystectomy; Tonsillectomy; Total abdominal hysterectomy; rv - Immunization history:: Adult Immunizations up to date. - Social history:: Smoking status: Patient/guardian denies using tobacco, the patient reports quitting approximately 17 years ago. Screenin:02 [facility] ED Fall Risk Assessment (Adult) History of falling in the last 3 months, rv including since admission No falls in past 3 months (0 pts) Score/Fall Risk Level 0 - 2 = Low Risk Oriented to surroundings, Maintained a safe environment, Educated pt \T\ family on fall prevention, incl call for assistance when getting out of bed, Assessed \T\ reinforced patient's understanding of fall precautions. Abuse screen: Denies threats or abuse. Denies injuries from another. Nutritional screening: No deficits noted. Tuberculosis screening: No symptoms or risk factors identified. Assessment: 22:53 General: Appears uncomfortable, well groomed, well developed, well nourished, Behavior me1 is calm, cooperative, appropriate for age, Reports had angiogram yesterday morning, failed access on the right wrist, went in via femoral, did not placed stent and was discharged. since then, has been complaining of pain and swelling on the right wrist puncture site. denies fever. Pain: Complains of pain in left wrist Pain does not radiate. Pain currently is 6 out of 10 on a pain scale. Quality of pain is described as aching, Pain began gradually, 1 day ago. Is continuous. Neuro: Level of Consciousness is awake, alert, obeys commands, Oriented to person, place, time, situation, Appropriate for age. Cardiovascular: Reports had angiogram yesterday morning, failed access on the right wrist, went in via femoral, did not placed stent and was discharged. since then, has been complaining of pain and swelling on the right wrist puncture site. denies fever. Capillary refill < 3 seconds Patient's skin is warm and dry. Respiratory: Airway is patent Respiratory effort is even, unlabored, Respiratory pattern is regular, symmetrical. Derm:. Musculoskeletal: Reports pain in left wrist since yesterday. Vital Signs: 21:57 BP 135 / 78; Pulse 65; Resp 16; Temp 98.5; Pulse Ox 97% on R/A; Weight 81.19 kg; Height rv 5 ft. 3 in. ; Pain 6/10; 22:12 BP 149 / 70; Pulse 56; Resp 12; Pulse Ox 96% on R/A; me1 09/06 00:06 BP 162 / 99; Pulse 56; Resp 18; Pulse Ox 99% on R/A; me1 09/05 21:57 Body Mass Index 31.71 (81.19 kg, 160.02 cm) rv 09/05 21:57 Pain Scale: Adult rv Reyes Coma Score: 00:52 Eye Response: spontaneous(4). Motor Response: obeys commands(6). Verbal Response: rv oriented(5). Total: 15. ED Course: 09/05 21:53 Patient arrived in ED. ag3 22:01 Triage completed. rv 22:01 Arm band placed on right wrist. rv 22:02 Patient has correct armband on for positive identification. Client placed on continuous rv cardiac and pulse oximetry monitoring. NIBP monitoring applied. 22:02 No provider procedures requiring assistance completed. rv 22:05 Kurt Kwan PA is PHCP. cp 22:05 Kurt Loaiza MD is Attending Physician. cp 22:44 An Braden, RN is Primary Nurse. me1 22:52 Inserted saline lock: 20 gauge in left antecubital area, using aseptic technique. me1 22:53 Provided Education on: POC. Verbalized understanding. . me1 23:05 XRAY Wrist RIGHT 3 view In Process Unspecified. EDMS 23:05 XRAY Chest (1 view) In Process Unspecified. EDMS 23:45 Upper Ext Artery Uni José Miguel In Process Unspecified. EDMS 23:46 UPPER EXTREMITY VENOUS UNILATE In Process Unspecified. EDMS 09/06 00:52 IV discontinued, intact, bleeding controlled, No redness/swelling at site. Pressure rv dressing applied. Administered Medications: 09/05 22:53 Drug: Ketorolac IVP 15 mg IVP once Route: IVP; Site: left antecubital; me1 22:53 Drug: fentaNYL (PF) IVP 25 mcg IVP once Route: IVP; Site: left antecubital; md1 Medication: 22:02 VIS not applicable for this client. rv Outcome: 09/06 00:42 Discharge ordered by . cp 00:52 Discharged to home ambulatory, with family, rv 00:52 Condition: good 00:52 Discharge instructions given to patient, Instructed on discharge instructions, follow up and referral plans. Demonstrated understanding of instructions, follow-up care, 00:52 Patient left the ED. rv Signatures: Dispatcher [employer] EDKY Page, KEREN Hicks cp, Ronaldo, RN RN rv Stephani John ag3 An Braden RN RN me1 Corrections: (The following items were deleted from the chart) 09/05 22:53 21:57 Chief complaint: EMS states: had angiogram yesterday morning, failed access on me1 the right wrist, went in via femoral, did not placed stent and was discharged. since then, has been complaining of pain and swelling on the right wrist puncture site. denies fever. rv
--- NOTE | 2023-09-06 00:43 | EDPHYS ---
Physician Documentation [facility] Name: Diane Morrell Age: 62 yrs Sex: Female : 1960 Arrival Date: 09/05/2023 Time: 21:50 Bed 13 Private MD: ED Physician Kurt Loaiza HPI: 09/05 22:35 This 62 yrs old Female presents to ER via Ambulatory with complaints of Hand cp Swelling. 22:35 Patient is a 62-year-old female who presents to the emergency department with cp complaints of right hand and wrist swelling. Patient reports having angiogram performed through the right radial artery by Dr. Lee yesterday morning that was unsuccessful so then they used the right groin. Patient does not report any complications but reports increased swelling to her right hand and wrist today, increased pain. Historical: - Allergies: 22:01 Clindamycin; rv 22:01 Latex; rv 22:01 PENICILLINS; rv 22:01 Vicodin; rv - PMHx: 22:01 diabetes mellitus ; diet controlled; Dyphasia (Hypertensive disord); rv Hypercholesterolemia; Hypertensive disorder; - PSHx: 22:01 Cholecystectomy; Tonsillectomy; Total abdominal hysterectomy; rv - Immunization history:: Adult Immunizations up to date. - Social history:: Smoking status: Patient/guardian denies using tobacco, the patient reports quitting approximately 17 years ago. ROS: 22:40 MS/extremity: Positive for pain, swelling, tenderness, Negative for decreased range of cp motion, paresthesias, 22:40 Constitutional: Negative for chills, fever, cp 22:40 Cardiovascular: Negative for chest pain, 22:40 Respiratory: Negative for cough, shortness of breath, 22:40 Abdomen/GI: Negative for abdominal pain, 22:40 Skin: Negative for rash, 22:40 Neuro: Negative for altered mental status, dizziness, headache, weakness, 22:40 All other systems are negative, Exam: 22:45 Constitutional: The patient appears in no acute distress, alert, awake, cp non-diaphoretic, non-toxic, well developed, well nourished, uncomfortable, 22:45 Head/Face: Normocephalic, atraumatic. cp 22:45 Eyes: Periorbital structures: appear normal, Conjunctiva: normal, no exudate, no injection, Sclera: no appreciated abnormality, Lids and lashes: appear normal, bilaterally, 22:45 ENT: External ear(s): are unremarkable, Nose: is normal, Mouth: Lips: moist, Oral mucosa: moist, Posterior pharynx: is normal, airway is patent, 22:45 Chest/axilla: Inspection: normal, 22:45 Cardiovascular: Rate: normal, Rhythm: regular, Pulses: Pulses are 2+ in right radial artery and left radial artery. Edema: is not appreciated, JVD: is not appreciated, 22:45 Respiratory: the patient does not display signs of respiratory distress, Respirations: normal, no use of accessory muscles, no retractions, labored breathing, is not present, Breath sounds: are clear throughout, no decreased breath sounds, no stridor, no wheezing, 22:45 Abdomen/GI: Inspection: abdomen appears normal, Palpation: abdomen is soft and non-tender, in all quadrants, 22:45 Back: pain, is absent, ROM is normal, 22:45 Musculoskeletal/extremity: Extremities: noted in the right hand and right wrist: mild swelling, tenderness to palpation, radial and ulna pulses strong with positive Roosevelt test, ROM: limited passive range of motion due to pain, in the right wrist, the right hand Sensation intact. 22:45 Skin: cellulitis, is not appreciated, no rash present. 22:45 Neuro: Orientation: to person, place \T\ time. Mentation: is normal, Vital Signs: 21:57 BP 135 / 78; Pulse 65; Resp 16; Temp 98.5; Pulse Ox 97% on R/A; Weight 81.19 kg; Height rv 5 ft. 3 in. ; Pain 6/10; 22:12 BP 149 / 70; Pulse 56; Resp 12; Pulse Ox 96% on R/A; nd1 09/06 00:06 BP 162 / 99; Pulse 56; Resp 18; Pulse Ox 99% on R/A; nd1 09/05 21:57 Body Mass Index 31.71 (81.19 kg, 160.02 cm) rv 09/05 21:57 Pain Scale: Adult rv Reyes Coma Score: 00:52 Eye Response: spontaneous(4). Motor Response: obeys commands(6). Verbal Response: rv oriented(5). Total: 15. MDM: 09/05 22:05 Patient medically screened. cp 09/06 00:41 Data reviewed: vital signs, nurses notes, lab test result(s), EKG, radiologic studies, cp plain films, ultrasound. 00:41 Differential diagnosis: dvt, cellulitis, hematoma. I considered the following discharge cp prescriptions or medication management in the emergency department Medications were administered in the Emergency Department. See MAR. Counseling: I had a detailed discussion with the patient and/or guardian regarding the historical points, exam findings, and any diagnostic results supporting the discharge/admit diagnosis, lab results, radiology results, to return to the emergency department if symptoms worsen or persist or if there are any questions or concerns that arise at home. Response to treatment: the patient's symptoms have markedly improved after treatment, and as a result, I will discharge patient. 09/05 22:33 Order name: Basic Metabolic Panel; Complete Time: 23:31 09/06 00:32 Interpretation: Normal except: CL 109; GLUC 134. 09/05 22:33 Order name: CBC with Diff; Complete Time: 23:31 cp 09/05 22:33 Order name: PT-INR; Complete Time: 23:31 cp 09/05 22:33 Order name: XRAY Wrist RIGHT 3 view cp 09/05 22:33 Order name: XRAY Chest (1 view) 09/05 23:45 Order name: Upper Ext Artery Uni José Miguel EDPR 09/05 23:46 Order name: UPPER EXTREMITY VENOUS UNILATE [facility] 09/05 22:33 Order name: Cardiac monitoring; Complete Time: 22:56 cp 09/05 22:33 Order name: IV Saline Lock; Complete Time: 22:53 cp 09/05 22:33 Order name: Labs collected and sent; Complete Time: 22:52 cp 09/05 22:33 Order name: O2 Per Protocol; Complete Time: 22:53 cp 09/05 22:33 Order name: O2 Sat Monitoring; Complete Time: 22:53 cp 09/06 00:40 Order name: Wrist Splint; Complete Time: 00:42 cp Administered Medications: 09/05 22:53 Drug: Ketorolac IVP 15 mg IVP once Route: IVP; Site: left antecubital; me1 22:53 Drug: fentaNYL (PF) IVP 25 mcg IVP once Route: IVP; Site: left antecubital; me1 Disposition Summary: 09/06/23 00:42 Discharge Ordered Notes: Location: Home cp Problem: new cp Symptoms: have improved cp Condition: Stable cp Diagnosis - Pain in right wrist cp - Pain in hand and fingers cp Followup: cp - With: Private Physician - When: 2 - 3 days - Reason: Recheck today's complaints Discharge Instructions: - Discharge Summary Sheet cp - Wrist Pain, Adult cp - Hand Pain cp Forms: - Medication Reconciliation Form cp - Thank You Letter cp - Antibiotic Education cp - Prescription Opioid Use cp - Patient Portal Instructions cp - Leadership Thank You Letter cp Signatures: Dispatcher [employer] EDMS Kurt Kwan PA PA cp Jorge Quarles, RN RN An Braden RN RN me1 Corrections: (The following items were deleted from the chart) 23:45 22:45 Lower Extremity Artery Uni Ltd+[email or web address] ordered. EDMS EDMS 23:46 22:33 Extremity Venous Uni Ltd+[email or web address] ordered. EDMS EDMS
[2023-09-06 04:26] VITALS: BP 162/99; TEMP 98.5; O2SAT 99
--- NOTE | 2023-09-06 18:55 | RAD REPORT ---
EXAM DESCRIPTION: RAD - Wrist Right 3 View - 09/05/2023 11:03 pm CLINICAL HISTORY: 62 years Female, PAIN COMPARISON: None. IMPRESSION: No fracture or dislocation. Joint spaces are preserved. Osteopenia. Packing material in the volar aspect of the wrist. 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 The interpreting radiologist is fully responsible for the content of the report.
--- NOTE | 2023-09-06 19:04 | RAD REPORT ---
EXAM DESCRIPTION: US - UPPER EXTREMITY VENOUS UNILATE - 09/05/2023 11:45 pm CLINICAL HISTORY Pain; Swelling TECHNIQUE: Real-time duplex ultrasound scan of the right upper extremity veins integrating B-mode tw o-dimensional vascular structure, Doppler spectral analysis, color flow Doppler imaging and compressi on. COMPARISON: No relevant prior studies available. FINDINGS: Deep veins: Unremarkable. No DVT in the internal jugular, subclavian, axillary, brachi al, radial or ulnar veins. The veins demonstrate normal color flow, are normally compressible, with normal phasic flow and/or augmentation response. Superficial veins: Unremarkable. No thrombus in the visualized basilic and cephalic veins. Soft tissues: No acute findings. IMPRESSION: No evidence for deep venous thrombosis within the right upper extremity. 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 The interpreting radiologist is fully responsible for the content of the report.
--- NOTE | 2023-09-06 19:22 | RAD REPORT ---
EXAM DESCRIPTION: RAD - Chest Single View - 09/05/2023 11:03 pm CLINICAL HISTORY: 62 years Female, right hand and wrist swelling COMPARISON: Chest radiograph dated 09/04/2023 FINDINGS: No focal lung consolidation. No pleural effusion. No pneumothorax. Cardiomediastinal silhouette is unchanged. No acute osseous abnormality. IMPRESSION: No acute cardiopulmonary disease. 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 The interpreting radiologist is fully responsible for the content of the report.
--- NOTE | 2023-09-06 20:32 | RAD REPORT ---
EXAM DESCRIPTION: US - Upper Ext Artery Uni José Miguel - 09/05/2023 11:45 pm CLINICAL HISTORY: Female, 62 years old, Pain;Swelling COMPARISON: None. TECHNIQUE: Grayscale and color/spectral Doppler ultrasound of the right upper extremity. FINDINGS: Maximal velocities (cm/s): Subclavian: 98 Axillary: 75 Brachial: 62 Radial: 26 Ulnar: 39 Other findings: Triphasic waveforms. No occlusion or filling defect. IMPRESSION: No hemodynamically significant stenosis in the imaged right upper extremity. Electronically signed by: Lorenzo Woodard MD 09/06/2023 12:06 AM SANITARY ENGINEER Due to temporary technical issues with the PACS/Fluency reporting system, reports are being signed by the in house radiologists without review as a courtesy to insure prompt reporting. The interpreting radiologist is fully responsible for the content of the report.
== END ==
LOC: ER 21:50
DX: M25.531 Pain in right wrist (principal); M79.641 Pain in right hand; M79.644 Pain in right finger(s); Z88.0 Allergy status to penicillin; Z88.3 Allergy status to other anti-infective agents; Z88.5 Allergy status to narcotic agent
CPT/HCPCS: 85025; 80048; 36415; 85610; 71045; 73110; 93971; 93931; J3010